=== PATIENT | male | born 1945 | race Caucasian/White ===

== ENCOUNTER → 2025-01-08 08:20 | Outpatient (BNV) | payer MEDICARE, MEDICAID, SELFPAY | PROVIDERS: Emergency Provider Emergency Medicine; Visit Provider Internal Medicine Cardiovascular Disease | DX: I95.9 Hypotension, unspecified (principal); R00.0 Tachycardia, unspecified | CPT/HCPCS: 93010; 93306; 99232 ==

== ENCOUNTER 2025-01-08 08:31 | Inpatient (IN) | payer MEDICARE, MEDICAID, SELFPAY ==
[2025-01-08] VITALS (35 sets, daily range): BP systolic 78–108; BP diastolic 49–79; PULSE 101–129; RESP 15–26; TEMP 36.6–37.7; O2SAT 92–100; BMI 27.5
--- NOTE | ~2025-01-08 | CT_ITS ---
EXAMINATION: CT ANGIOGRAM CHEST CLINICAL INFORMATION: Shortness of breath. COMPARISON: None available. TECHNIQUE: Multiple axial images were obtained through the chest after the administration of 65 mL of Omnipaque 350 intravenous contrast. Extensive vascular post-processing including two-dimensional and three-dimensional reformatted images were created and reviewed on an independent workstation. SmartPrep technique. This CT examination was performed using dose optimization techniques as appropriate, variously including the following: *Automated exposure control *Adjustment of mA and/or kV according to patient size (this includes techniques or standardized protocols for targeted exams where dose is matched to indication/reason for exam; i.e. extremities or head) *Use of iterative reconstruction technique. DLP: 273 mGy centimeter. FINDINGS: There is intraluminal filling defects extending from the left and right main pulmonary artery branches to the subsegmental pulmonary branches to both lungs. The diameter of the main pulmonary artery is smaller when compared with the ascending thoracic aorta. There is no thinning or paradoxical position of the intraventricular septum. No aneurysm or dissection, thoracic aorta. Calcified plaques in the thoracic aortic wall its main branches and the aortic valve. Calcified plaques in the coronary arteries. There is pulmonary patchy groundglass with the chin bud pattern involving both lungs and more confluent groundglass nodules in the left upper lung lobe and lung bases. Secretions within the distal trachea. No gross bronchiectasis or honeycombing. No gross centrilobular emphysematous changes. No gross mediastinal or perihilar lymphadenopathy. No pneumothorax. No pleural effusion. No pericardial effusion. Mild soft tissue fullness in the adrenal glands. Multifocal hypodensities in the upper pole of the kidneys. Calcified plaques in the splenic artery. Calcified pleural plaques in the anterior right hemithorax. No gross acute rib fracture. Multilevel spondylosis with likely old compression deformities throughout the axial skeleton. S-shaped curvature of the thoracic spine. No acute fracture or gross listhesis. CT/CT angio chest PE protocol IMPRESSION: Bilateral extensive pulmonary artery emboli. No right heart strain. Bilateral multifocal pneumonia. Probable aspiration. Unilateral Calcified pleural plaque, right hemithorax. Consider prior trauma versus prior hemorrhage among other etiologies. . Fleischner guidelines were followed. Electronically signed by: Herber Barcenas MD 01/08/2025 01:49 PM EDT
--- NOTE | ~2025-01-08 | XR_ITS ---
EXAMINATION: XR CHEST 1 VIEW HISTORY: SOB COMPARISON: There are no prior studies available for comparison. FINDINGS: A single AP portable view of the chest performed at 9:27 AM is submitted. There is an opacity in the lateral aspect of the right hemithorax which may represent a calcified pleural plaque. The left lung is clear. There is no pleural effusion, pneumothorax, or pulmonary vascular congestion. The heart is normal in size. There is degenerative disc disease of the spine. XR/XR chest 1V IMPRESSION: Opacity in the right hemithorax which may represent a calcified pleural plaque seen en face. CT angiography of the chest is planned. Electronically signed by: Baljit Lucas MD 01/08/2025 09:41 AM EDT
--- NOTE | 2025-01-08 08:50 | ED.GENADULT ---
HPI - General Adult General Chief complaint: General Medical Stated complaint: SOB,89% RA,+FULL SENTENCES PER EMS Source: patient and RN notes reviewed Mode of arrival: EMS Limitations: no limitations History of Present Illness ED Provider: Jackson Koch PA-C HPI narrative: 79-year-old male with medical history of HTN patient by EMS for shortness of breath. Patient states he was seeing at [facility] yesterday for same symptoms and was discharged given an albuterol inhaler, but he was not sure how to use it, patient is blind at baseline could not read directions. Patient states he has been short of breath over the past 5 days, has had to sleep in recliner chair due to shortness of breath and discomfort while lying flat. Patient states about 5 days ago he was cleaning his home when he noticed difficulty breathing, shortness of breath and difficulty walking due to heaviness in his legs. Patient states he was a former tobacco smoker, quit approximately 30 years ago. Patient denies recent illness, travel. Denies chest pain, nausea, vomiting, diarrhea, abdominal pain, cough, chills Related Data Home Medications ?Medication ?Instructions ?Recorded ?Confirmed amlodipine 5 mg tablet 5 mg PO DAILY 01/08/25 01/08/25 lisinopril 40 mg tablet 40 mg PO DAILY 01/08/25 01/08/25 Allergies Allergy/AdvReac Type Severity Reaction Status Date / Time No Known Allergies Allergy Verified 01/08/25 08:51 Review of Systems Review of Systems: CONST: Negative for fever, body aches and chills. HENT: Negative for neck pain/stiffness, headache, congestion, sore throat, swelling. EYES: Negative for discharge/pain or vision changes. RESP: Negative for cough/hemoptysis. POS SOB, difficulty breathing CV: Negative chest pain, palpitations. ABD: Negative pain, nausea, vomiting. : Negative increase frequency, dysuria, blood in urine or stool. MUSC: Negative for muscle aches, edema. SKIN: Negative rash, lesions/sores. NEURO: Negative headache, dizziness, weakness. Yes all other systems are reviewed and are negative PMF Past Medical History Attestation statement: The following information was validated with the patient. Source: old records reviewed and nursing notes reviewed Medical History (Updated 01/09/25 @ 09:30 by Farzana Lehman MD) Chronic kidney disease HTN (hypertension) Blindness Social History Social History (Updated 01/08/25 @ 18:03 by Mary Clinton NP) Household Members: Family Comment: Occasional Patient Tobacco Use Status: Former Tobacco user Smoked in Last 30 Days: No Use of substances other than those prescribed or required for medical reasons: No Have you been hit, kicked, punched, or otherwise hurt by someone within the past year? If so, by whom?: No Do you feel safe in your current relationship?: No Current Relationship Is there a partner from a previous relationship who is making you feel unsafe now?: No Are you made to feel afraid or neglected: No [employer] Healthcare Practices: n/a Are you DNR?: No Advance Directives: No Advance Directives Information Provided: Yes Do you have a plan to hurt others: No Plan Recently lost weight without trying: No How much weight loss: Not applicable Eating poorly because of decreased appetite: No Nutrition screen score: 0 Nutrition Risks: No Nutritional Risk Poor oral hygiene: No Physical Exam ED Vital Signs: Vital Signs - 24 hr 01/08/25 16:41 Pulse Rate 107 H Respiratory Rate 24 H Blood Pressure 95/67 Pulse Oximetry 100 Oxygen Delivery Method High Flow Nasal Cannula BMI result Body Mass Index 27.5 GENERAL APPEARANCE: ?AxOx4, patient with pursed lip breathing, in mild discomfort due to shortness of breath. HEENT: ?NC, AT. MMM. EOMI, clear conjunctiva, oropharynx clear. NECK: ?Supple without lymphadenopathy.? No stiffness or restricted ROM. Significant JVD HEART:? Tachycardic rate and regular rhythm, normal S1/S2, no m/r/g LUNGS:? Diminished breath sounds throughout all lung bustillo, crackles auscultated at bilateral lung bases ABDOMEN: ?Soft, nontender, nondistended with good bowel sounds heard. BACK: No CVAT, no obvious deformity. EXTREMITIES: ?Without cyanosis, clubbing. Bilateral 2+ pitting edema of lower extremities with L>R, no hydrostatic bullae present NEUROLOGICAL: ?Grossly nonfocal. Alert and oriented, moving all 4 extremities Skin: ?Warm and dry without any rash. Course Course Course Narrative: Lucita RosalinoDO 01/08/25 1017 at this time possible infection suspected though consider VTE, mass, cardiogenic shock - will start on LR 160ml given concern for volume overload and ceftriaxone IV Medications Administered Generic Name Dose Route Start Last Admin Trade Name Shala PRN Reason Stop Dose Admin Albuterol Sulfate 2.5 mg 01/08/25 20:00 01/09/25 15:20 Albuterol Sulfate (0.083%) 2.5 Mg/3 Ml Vial.Neb INHALE Not Given RQ4H WHILE AWAKE DASHAWN Heparin Sodium (Porcine) 5,500 unit 01/08/25 13:43 01/09/25 04:33 Heparin Sodium,Porcine 5,000 Unit/Ml Vial 80 unit/kg (5500 unit) 5,500 unit IVPUSH Administration PROTOCOL BOLUS PRN 80 unit/kg - Heparin Protocol Protocol Heparin Sodium/Sodium Chloride 25,000 unit in 250 mls @ 0 mls/hr 01/08/25 13:45 01/09/25 16:21 Heparin Sodium,Porcine/1/2ns IVCONT 14 units/kg/hr .Q0M DASHAWN 9.55 mls/hr Protocol Administration Per Protocol Lactated Ringer's 1,000 mls @ 80 mls/hr 01/08/25 18:00 01/09/25 06:17 Lr IVCONT 80 mls/hr .[id number] DASHAWN Administration Vancomycin HCl 500 mg/ Sodium 110 mls @ 110 mls/hr 01/09/25 08:00 01/09/25 10:25 Chloride IV Infused Q12H DASHAWN Infusion Sodium Chloride 3 ml 01/09/25 00:00 01/09/25 08:29 0.9 % Sodium Chloride Flush 3 Ml Syringe IVFLUSH Not Given QSHIFT DASHAWN Discontinued Medications Generic Name Dose Route Start Last Admin Trade Name Shala PRN Reason Stop Dose Admin Ceftriaxone Sodium 1 gm 01/08/25 10:14 01/08/25 11:22 Ceftriaxone Sodium 1 Gm Vial IVPUSH 01/08/25 10:15 1 gm ONCE ONE Administration Levalbuterol HCl 3.75 mg/ 0 mg 01/08/25 08:47 01/08/25 08:53 Ipratropium [place] 0.5 mg INHALE 01/08/25 08:48 1 dose ONCE ONE Administration Fentanyl 25 mcg 01/09/25 12:28 01/09/25 12:27 Fentanyl Citrate/Pf 100 Mcg/2 Ml Vial IVPUSH 01/09/25 12:29 25 mcg ONCE ONE Administration Protocol Heparin Sodium (Porcine) 5,500 unit 01/08/25 13:43 01/08/25 14:48 Heparin Sodium,Porcine 5,000 Unit/Ml Vial 80 unit/kg (5500 unit) 01/08/25 13:44 5,500 unit IVPUSH Administration ONCE ONE Heparin Sodium (Porcine) 5,000 unit 01/09/25 12:52 01/09/25 12:52 Heparin Sodium,Porcine 10,000 Unit/10 Ml Vial IVPUSH 01/09/25 12:53 5,000 unit STAT STA Administration Albumin Human 100 mls @ 133.333 mls/hr 01/08/25 10:00 01/08/25 12:09 Kedbumin 25 % IV 01/08/25 11:44 Not Given Q1H DASHAWN Norepinephrine Bitartrate 8 mg in 250 mls @ 0 mls/hr 01/08/25 10:15 01/08/25 15:03 Levophed IVCONT Infused .Q0M DASHAWN Titration Protocol Per Protocol Lactated Ringer's 1,000 mls @ 160 mls/hr 01/08/25 10:14 01/08/25 11:08 Lr IV 01/08/25 16:28 Not Given .Q6H15M ONE Lactated Ringer's 1,000 mls @ 500 mls/hr 01/08/25 11:00 01/08/25 11:10 Lr IV 01/08/25 11:59 Not Given .Q2H DASHAWN Lactated Ringer's 1,000 mls @ 500 mls/hr 01/08/25 11:04 01/08/25 13:56 Lr IV 01/08/25 13:03 Infused .Q2H ONE Infusion Lactated Ringer's 1,000 mls @ 500 mls/hr 01/08/25 12:10 01/08/25 15:06 Lr IV 01/08/25 14:09 Infused .Q2H ONE Infusion Piperacillin Sod/Tazobactam 50 mls @ 100 mls/hr 01/08/25 18:15 01/09/25 15:56 Sod 3.375 gm/ Sodium Chloride IV Not Given Q6H DASHAWN Vancomycin HCl 1,500 mg/ 500 mls @ 333.333 mls/hr 01/08/25 18:30 01/08/25 20:54 Sodium Chloride IV 01/08/25 19:59 Infused ONCE ONE Infusion Iohexol 100 ml 01/08/25 13:26 01/08/25 13:27 Iohexol 350 Mg/Ml 100 Ml Infus..Btl IV 01/08/25 13:27 65 ml ONCE ONE Administration Midazolam HCl 0.5 mg 01/09/25 12:27 01/09/25 12:27 Midazolam Hcl 2 Mg/2 Ml Vial IVPUSH 01/09/25 12:28 0.5 mg ONCE ONE Administration Medical Decision Making Medical Decision Making MDM Narrative: 79-year-old male with medical history of HTN patient by EMS for shortness of breath. Patient states he was seeing at [facility] yesterday for same symptoms and was discharged given an albuterol inhaler, but he was not sure how to use it, patient is blind at baseline could not read directions. Patient states he has been short of breath over the past 5 days, has had to sleep in recliner chair due to shortness of breath and discomfort while lying flat. Patient states about 5 days ago he was cleaning his home when he noticed difficulty breathing, shortness of breath and difficulty walking due to heaviness in his legs. Patient states he was a former tobacco smoker, quit approximately 30 years ago. Patient denies recent illness, travel. Vital signs revealed BP of 96/73, pulse rate of 129, respiratory rate of 23, afebrile with oral temperature of 98.9?, O2 saturation 95% on 3 L NC. Bedside echo performed by my attending Dr. Jerry reveals ?right ventricular dysfunction with dilated ventricles, reduced contractility. Plan: Labs, EKG, CXR, CTA chest Course 9:42- patient received Xopenex/Atrovent breathing treatment by Respiratory therapy. Patient states breathing has somewhat improved after treatment. EKG reveals sinus tachycardia with right axis deviation, without ST-elevation/depression or signs of ischemia 10:04- SEE SEPSIS BOLUS EXCLUSION Patient's physical exam shows fluid overload, patient cannot receive fluid bolus for care at this time. Patient with evidence of fluid overload due to 2+ pitting edema of lower extremities, JVD, crackles heard on lung auscultation, patient is cool to the touch. At this time patient exhibiting signs clinical picture of cardiogenic shock. we will medicate with Levophed if pressures continue to drop. 10:24- considered 160 mL IV fluid, per recommendation of mat linker Dr. Mcgovern who is following this case, hold fluids until echo is completed due to fluid overload. Will do BIPAP to help push fluid off of lungs. Awaiting CTA chest results. Dr. Mcgovern recommending 500 mL fluids, with additional 500 mL if needed for soft pressures. Labs without leukocytosis, H and H stable. Creatinine elevated at 1.5, Lactic acid elevated at 3.3, BNP elevated at 774, initial troponin elevated at 203.7. Patient with rectal temperature of 100?. 11:20- infection suspected at this time, patient being medicated with 1 g ceftriaxone for empirical coverage. 12:33- patient currently receiving Levophed for soft pressure, patient requiring 0.03 to maintain stable BP. Patient received 500 mL fluid without issue, currently receiving additional bag for total of a 1000 mL. Lactic acid trending down now 3.1, 2nd troponin elevated at 327.9 most likely due to demand, repeat EKG without ST elevation/depression. Vital signs reveal blood pressure of 82/60, pulse rate of 108 beats per minute, respiratory rate of 21, oral temp of 99?, O2 saturation 95% on BiPAP. Awaiting CTA chest. 17:00- Levophed discontinued, BiPAP discontinue patient now on high-flow oxygen, is hemodynamically stable at this time. Vital signs still a tachycardia of 107 beats per minute, tachypnea of 24 breaths per minute. CTA chest revealed multiple bilateral pulmonary emboli, with bilateral pneumonia. Heparin drip started. Lactic acid is still elevated at 3.8. Patient being admitted to medicine. Differential Diagnosis Differential Diagnoses: The differential diagnosis associated with the presentation includes ACS PE COPD exacerbation CHF exacerbation Pneumonia Admission/Observation Consideration of admission/observation: Escalation of care including admission/observation considered Consult Healthcare Provider Management of the patient was discussed with: Hospitalist (Dr. Lacey) Dr. Lacey who will admit to medicine Lab Data MDM Lab Attestation statement: I reviewed the patient's lab results. 01/09/25 04:24 01/09/25 04:24 Labs: Lab Results 01/08/25 01/08/25 01/08/25 Range/Units 09:25 09:34 11:03 WBC 7.0 (4.8-10.8) X10*3/uL RBC 4.30 L (4.60-5.80) X10*6/uL Hgb 12.6 L (14.0-18.0) g/dl Hct 38.7 L (42.0-52.0) % MCV 90.0 (80.0-98.0) fL MCH 29.3 (27.0-33.0) pg MCHC 32.6 (31.0-36.0) g/dl RDW 13.8 (11.0-16.0) % Plt Count 250 (160-400) X10*3/uL MPV 9.5 (9.4-12.4) fL Immature Gran % (Auto) 1.9 H (0.0-0.4) % Neut % (Auto) 90.4 H (45-73) % Lymph % (Auto) 6.7 L (20-40) % [place] % (Auto) 0.9 L (2-11) % Eos % (Auto) 0.0 (0-4) % Baso % (Auto) 0.1 (0-2) % Lymph # (Auto) 0.5 L (1.2-4.9) X10*3/uL [place] # (Auto) 0.1 (0.1-1.2) X10*3/uL Eos # (Auto) 0.0 (0.0-0.4) X10*3/uL Baso # (Auto) 0.0 (0.0-0.2) X10*3/uL Abs Immat Gran (auto) 0.13 H (0.00-0.03) X10*3/uL Absolute Neuts (auto) 6.3 (2.0-8.3) x10*3/uL Absolute Nucleated RBC 0.000 (0.0-0.012) X10*3/uL Nucleated RBC % (auto) 0.0 (0.0-0.2) /100WBC Smear Tech's Comments VERIFIED PT (10.9-12.4) SEC INR (0.9-1.1) aPTT Heparin Protocol (53-77.9) SEC Hold Blue Top SEE NOTE VBG pH 7.33 (7.32-7.43) VBG pCO2 38 mmHg VBG pO2 51 mmHg VBG HCO3 20 L (22-26) mmol/L VBG O2 Saturation 76.0 % VBG Base Excess -4.8 mmol/L Sodium 137 (135-145) mmol/L Potassium 5.3 H (3.3-5.1) mmol/L Chloride 102 (96-108) mmol/L Carbon Dioxide 19 L (22-29) mmol/L Anion Gap 22 H (12-20) BUN 37 H (9-16) mg/dL Creatinine 1.36 (0.5-1.4) mg/dL Estim Creat Clear Calc 38.0 Estimated GFR 51 Random Glucose 160 H (60-115) mg/dL Lactic Acid 3.3 H* (0.5-2.0) mmol/L Lactic Acid F/U @ 2Hr (0.5-2.0) mmol/L Calcium 9.1 (8.4-10.2) mg/dL Magnesium 1.8 (1.6-2.6) mg/dL Total Bilirubin 0.6 (0.0-1.0) mg/dL AST 27 (5-37) U/L ALT 29 (0-40) U/L Alkaline Phosphatase 162 H (39-117) U/L Ammonia 26 (13-55) umol/L Troponin I High Sens 203.7 H* (<3.5-35.0) ng/L B-Natriuretic Peptide 774 H (<100) pg/mL Total Protein 7.1 (6.5-8.0) g/dL Albumin 3.8 (3.5-5.0) g/dL 01/08/25 01/08/25 01/08/25 Range/Units 12:12 12:13 12:14 WBC (4.8-10.8) X10*3/uL RBC (4.60-5.80) X10*6/uL Hgb (14.0-18.0) g/dl Hct (42.0-52.0) % MCV (80.0-98.0) fL MCH (27.0-33.0) pg MCHC (31.0-36.0) g/dl RDW (11.0-16.0) % Plt Count (160-400) X10*3/uL MPV (9.4-12.4) fL Immature Gran % (Auto) (0.0-0.4) % Neut % (Auto) (45-73) % Lymph % (Auto) (20-40) % [place] % (Auto) (2-11) % Eos % (Auto) (0-4) % Baso % (Auto) (0-2) % Lymph # (Auto) (1.2-4.9) X10*3/uL [place] # (Auto) (0.1-1.2) X10*3/uL Eos # (Auto) (0.0-0.4) X10*3/uL Baso # (Auto) (0.0-0.2) X10*3/uL Abs Immat Gran (auto) (0.00-0.03) X10*3/uL Absolute Neuts (auto) (2.0-8.3) x10*3/uL Absolute Nucleated RBC (0.0-0.012) X10*3/uL Nucleated RBC % (auto) (0.0-0.2) /100WBC Smear Tech's Comments PT (10.9-12.4) SEC INR (0.9-1.1) aPTT Heparin Protocol (53-77.9) SEC Hold Blue Top VBG pH (7.32-7.43) VBG pCO2 mmHg VBG pO2 mmHg VBG HCO3 (22-26) mmol/L VBG O2 Saturation % VBG Base Excess mmol/L Sodium 136 (135-145) mmol/L Potassium 5.2 H (3.3-5.1) mmol/L Chloride 104 (96-108) mmol/L Carbon Dioxide 18 L (22-29) mmol/L Anion Gap 19 (12-20) BUN 39 H (9-16) mg/dL Creatinine 1.50 H (0.5-1.4) mg/dL Estim Creat Clear Calc 34.4 Estimated GFR 45 Random Glucose 156 H (60-115) mg/dL Lactic Acid (0.5-2.0) mmol/L Lactic Acid F/U @ 2Hr 3.1 H* (0.5-2.0) mmol/L Calcium 8.6 (8.4-10.2) mg/dL Magnesium (1.6-2.6) mg/dL Total Bilirubin 0.4 (0.0-1.0) mg/dL AST 30 (5-37) U/L ALT 27 (0-40) U/L Alkaline Phosphatase 142 H (39-117) U/L Ammonia (13-55) umol/L Troponin I High Sens 327.9 H* D (<3.5-35.0) ng/L B-Natriuretic Peptide (<100) pg/mL Total Protein 6.3 L (6.5-8.0) g/dL Albumin 3.5 (3.5-5.0) g/dL 01/08/25 01/08/25 Range/Units 14:15 16:51 WBC (4.8-10.8) X10*3/uL RBC (4.60-5.80) X10*6/uL Hgb (14.0-18.0) g/dl Hct (42.0-52.0) % MCV (80.0-98.0) fL MCH (27.0-33.0) pg MCHC (31.0-36.0) g/dl RDW (11.0-16.0) % Plt Count (160-400) X10*3/uL MPV (9.4-12.4) fL Immature Gran % (Auto) (0.0-0.4) % Neut % (Auto) (45-73) % Lymph % (Auto) (20-40) % [place] % (Auto) (2-11) % Eos % (Auto) (0-4) % Baso % (Auto) (0-2) % Lymph # (Auto) (1.2-4.9) X10*3/uL [place] # (Auto) (0.1-1.2) X10*3/uL Eos # (Auto) (0.0-0.4) X10*3/uL Baso # (Auto) (0.0-0.2) X10*3/uL Abs Immat Gran (auto) (0.00-0.03) X10*3/uL Absolute Neuts (auto) (2.0-8.3) x10*3/uL Absolute Nucleated RBC (0.0-0.012) X10*3/uL Nucleated RBC % (auto) (0.0-0.2) /100WBC Smear Tech's Comments PT 13.6 H (10.9-12.4) SEC INR 1.2 H (0.9-1.1) aPTT Heparin Protocol 24.7 L (53-77.9) SEC Hold Blue Top VBG pH (7.32-7.43) VBG pCO2 mmHg VBG pO2 mmHg VBG HCO3 (22-26) mmol/L VBG O2 Saturation % VBG Base Excess mmol/L Sodium (135-145) mmol/L Potassium (3.3-5.1) mmol/L Chloride (96-108) mmol/L Carbon Dioxide (22-29) mmol/L Anion Gap (12-20) BUN (9-16) mg/dL Creatinine (0.5-1.4) mg/dL Estim Creat Clear Calc Estimated GFR Random Glucose (60-115) mg/dL Lactic Acid 3.8 H* (0.5-2.0) mmol/L Lactic Acid F/U @ 2Hr 2.3 H* (0.5-2.0) mmol/L Calcium (8.4-10.2) mg/dL Magnesium (1.6-2.6) mg/dL Total Bilirubin (0.0-1.0) mg/dL AST (5-37) U/L ALT (0-40) U/L Alkaline Phosphatase (39-117) U/L Ammonia (13-55) umol/L Troponin I High Sens (<3.5-35.0) ng/L B-Natriuretic Peptide (<100) pg/mL Total Protein (6.5-8.0) g/dL Albumin (3.5-5.0) g/dL Independent Interpretation I performed an independent interpretation of an: EKG Interpretation: I independently interpreted the EKG which reveals sinus tachycardia without ST elevation/depression or T-wave abnormality Vent. Rate : 131 BPM Atrial Rate : 131 BPM P-R Int : 134 ms QRS Dur : 74 ms QT Int : 308 ms P-R-T Axes : 53 260 25 degrees QTcB Int : 454 ms Sinus tachycardia Right superior axis deviation Right ventricular hypertrophy Septal infarct , age undetermined Abnormal ECG No previous ECGs available 2nd EKG- Vent. Rate : 107 BPM Atrial Rate : 107 BPM P-R Int : 138 ms QRS Dur : 74 ms QT Int : 346 ms P-R-T Axes : 59 -79 15 degrees QTcB Int : 461 ms Sinus tachycardia Left axis deviation Pulmonary disease pattern Septal infarct (cited on or before 08-Jan-2025) Inferior infarct , age undetermined Abnormal ECG When compared with ECG of 08-Jan-2025 09:01, No significant change was found I independently interpreted the CXR which reveals opacities of the right lung, no cardiomegaly, pleural effusion, I agree with the radiologist's interpretation Radiology Impression Discussion of test interpretation with radiology: I have reviewed the radiologist's reading. Radiologist Impression: CXR FINDINGS: A single AP portable view of the chest performed at 9:27 AM is submitted. There is an opacity in the lateral aspect of the right hemithorax which may represent a calcified pleural plaque. The left lung is clear. There is no pleural effusion, pneumothorax, or pulmonary vascular congestion. The heart is normal in size. There is degenerative disc disease of the spine. XR/XR chest 1V IMPRESSION: Opacity in the right hemithorax which may represent a calcified pleural plaque seen en face. CT angiography of the chest is planned. Electronically signed by: Baljit Lucas MD 01/08/2025 09:41 AM EDT RP Dictated By: Baljit Lucas MD Signed By: <Electronically signed by Baljit Lucas MD in [place]> 01/08/25 0941 CTA chest FINDINGS: There is intraluminal filling defects extending from the left and right main pulmonary artery branches to the subsegmental pulmonary branches to both lungs. The diameter of the main pulmonary artery is smaller when compared with the ascending thoracic aorta. There is no thinning or paradoxical position of the intraventricular septum. No aneurysm or dissection, thoracic aorta. Calcified plaques in the thoracic aortic wall its main branches and the aortic valve. Calcified plaques in the coronary arteries. There is pulmonary patchy groundglass with the chin bud pattern involving both lungs and more confluent groundglass nodules in the left upper lung lobe and lung bases. Secretions within the distal trachea. No gross bronchiectasis or honeycombing. No gross centrilobular emphysematous changes. No gross mediastinal or perihilar lymphadenopathy. No pneumothorax. No pleural effusion. No pericardial effusion. Mild soft tissue fullness in the adrenal glands. Multifocal hypodensities in the upper pole of the kidneys. Calcified plaques in the splenic artery. Calcified pleural plaques in the anterior right hemithorax. No gross acute rib fracture. Multilevel spondylosis with likely old compression deformities throughout the axial skeleton. S-shaped curvature of the thoracic spine. No acute fracture or gross listhesis. CT/CT angio chest PE protocol IMPRESSION: Bilateral extensive pulmonary artery emboli. No right heart strain. Bilateral multifocal pneumonia. Probable aspiration. Unilateral Calcified pleural plaque, right hemithorax. Consider prior trauma versus prior hemorrhage among other etiologies. . Fleischner guidelines were followed. Electronically signed by: Herber Barcenas MD 01/08/2025 01:49 PM EDT RP Dictated By: Herber Naidu MD Signed By: <Electronically signed by Herber Mcrae MD in [place]> 01/08/25 1349 Independent Historian Clinical information obtained from an independent historian. History obtained from or confirmed by: Other (Grandson at bedside corroborating history) External Record Review External record reviewed: Inpatient record, Office record and Outpatient record Chronic Conditions Patient?s care impacted by: Hypertension Critical Care Time Critical Care Time Total Critical Care Time: 93 Attestation: I personally provided a total of 93 minutes of critical care time, exclusive of separately billable procedures. The patient presented with acute decompensated respiratory failure and hemodynamic instability due to bilateral pulmonary emboli with severe tachycardia and tachypnea requiring BiPAP for oxygenation and ventilation support in initiation of vasopressor therapy to maintain adequate mean arterial pressure. My critical care time including direct evaluation and monitoring of airway breathing and circulation, interpretation of labs, EKG and imaging of CT angiography, initiation titration of BiPAP for acute hypoxic respiratory failure, initiation and titration of vasopressor support for cardiogenic shock, fluid resuscitation and hemodynamic reassessment, initiation of anticoagulation for pulmonary embolisms, consultation with hospitalist for continuous care, continuous bedside reassessment for deterioration. Discharge Plan Discharge Clinical Impression: Pulmonary embolism Patient Disposition: Admitted As Inpatient Interventions: Admission Worksheet (ED) Last Done: 01/09/25 07:58 Discharge Date/Time: 01/09/25 08:57 Sepsis Bolus Exclusion Sepsis Bolus Exclusion CHF/Renal Failure This patient met severe sepsis criteria due to the following condition(s):: Hypotension In my clinical judgement the administration of 30 ml/kg of crystalloid would be detrimental to this patient due to the patient's following conditions:: Concern for fluid overload Replace the 30 mls/kg with (Zero amount not acceptable and all fluids for severe sepsis must be given at GREATER than 125 mls/hr) Crystalloids amount given in mls: (rate must be at least 150cc/hr): 500 Colloids amount given in mls:: 0
[2025-01-08] MEDS: levalbuterol HCL 3.75 MG, Ipratropium Bromide 0.5 MG INHALE (08:53)
--- NOTE | 2025-01-08 08:55 | PC.NURSE ---
Pt seen by provider on arrival SOB, receiving duoneb by ems- O2 sat still 86 on RA- O2 administered at 2lpm N/C without effect- 3 LPM administered with good effect. Pt also receiving another resp tx and sat is rising to 95%. Pt placed on full monitor- HR remains ST 120's. Family at bedside
--- NOTE | 2025-01-08 08:59 | ECG_ITS ---
Test Reason : TACHYCARDIA Blood Pressure : */* mmHG Vent. Rate : 131 BPM Atrial Rate : 131 BPM P-R Int : 134 ms QRS Dur : 74 ms QT Int : 308 ms P-R-T Axes : 53 260 25 degrees QTcB Int : 454 ms Sinus tachycardia Right superior axis deviation Right ventricular hypertrophy Septal infarct , age undetermined Abnormal ECG No previous ECGs available Referred By: Zee Paz Electronically Signed By: Andre Mcgovern
--- NOTE | 2025-01-08 09:02 | ECG_ITS ---
Test Reason : abnormal labs Blood Pressure : */* mmHG Vent. Rate : 107 BPM Atrial Rate : 107 BPM P-R Int : 138 ms QRS Dur : 74 ms QT Int : 346 ms P-R-T Axes : 59 -79 15 degrees QTcB Int : 461 ms Sinus tachycardia Left axis deviation Pulmonary disease pattern Septal infarct (cited on or before 08-Jan-2025) Inferior infarct , age undetermined Abnormal ECG When compared with ECG of 08-Jan-2025 09:01, No significant change was found Referred By: Zee Paz Electronically Signed By: Andre Mcgovern
[2025-01-08 09:35] LABS: Hematocrit 38.7 % (42.0-52.0); Hemoglobin 12.6 g/dl (14.0-18.0); Imm Gran Abs Auto 0.13 X10*3/uL (0.00-0.03); Imm Gran Pct Auto 1.9 % (0.0-0.4); Lymphocytes Absolute Auto 0.5 X10*3/uL (1.2-4.9); MANUAL DIFF FLAG SCAN; Mean Corpuscular HGB Conc 32.6 g/dl (31.0-36.0); Mean Corpuscular Hemoglobin 29.3 pg (27.0-33.0); Mean Corpuscular Volume 90.0 fL (80.0-98.0); NRBC Abs Auto 0.000 X10*3/uL (0.0-0.012); NRBC Pct Auto 0.0 /100WBC (0.0-0.2); Platelet Count 250 X10*3/uL (160-400); Red Blood Count 4.30 X10*6/uL (4.60-5.80); SCAN SMEAR FLAG 1; White Blood Count 7.0 X10*3/uL (4.8-10.8)
[2025-01-08 09:36] LABS: Venous Blood Gas Refer to POC result
[2025-01-08 09:37] LABS: VBG HCO3 20 mmol/L (22-26); VBG O2 % Saturation 76.0 %
[2025-01-08 09:41] LABS: Ammonia 26 umol/L (13-55)
[2025-01-08 09:54] LABS: Alanine Aminotransferase 29 U/L (0-40); Albumin Level 3.8 g/dL (3.5-5.0); Alkaline Phosphatase 162 U/L (39-117); Aspartate Amino Transferase 27 U/L (5-37); Blood Urea Nitrogen 37 mg/dL (9-16); Calcium 9.1 mg/dL (8.4-10.2); Carbon Dioxide 19 mmol/L (22-29); Chloride 102 mmol/L (96-108); Creatinine Clr Calc Pharmacy 38.0; Estimated Glomerular Filt Rate 51; Magnesium 1.8 mg/dL (1.6-2.6); Potassium 5.3 mmol/L (3.3-5.1); Sodium 137 mmol/L (135-145); Total Protein 7.1 g/dL (6.5-8.0)
[2025-01-08 09:55] LABS: B Type Natriuretic Peptide 774 pg/mL (<100)
[2025-01-08 10:02] LABS: Troponin-I High Sensitivity 203.7 ng/L (<3.5-35.0)
--- NOTE | 2025-01-08 10:18 | CA_ITS ---
Transthoracic Echocardiogram Patient (Last, First, Middle): Wes Vogel, Gender: Male Date of : 1945 Age: 79 Procedure Date: 01/08/2025 Procedure Type: Transthoracic Echocardiogram Location: ER Height: 157.48 cm Weight: 68.04 kg BSA: 1.69 m2 Heart Rate: bpm BP: 89 / 64 mmHg Lead Machinist: TO Referring MD: Lucita Jerry DO Symptoms: dyspnea, volume overload, elevated BNP Study Quality: Fair/Contrast Conclusions: - Normal left ventricular size and systolic function. There is mildly increased left ventricular wall thickness. The visually estimated ejection fraction is between 60-65%. 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 - Mildly increased right ventricular cavity size. There is mild to moderately decreased right ventricular systolic function. - There is mild to moderate aortic valve stenosis. - Significantly elevated right atrial pressure. - Mild pulmonary hypertension is present. Findings Procedure Information Contrast agent, definity, is being given per protocol without apparent complications. Left Ventricle Normal left ventricular size and systolic function. There is mildly increased left ventricular wall thickness. The visually estimated ejection fraction is between 60-65%. Abnormal diastolic function is noted. Spectral Doppler is indicative of an impaired relaxation filling pattern. E/E prime ratio is between 8 and 15 consistent with indeterminate filling pressures. 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 Right Ventricle Mildly increased right ventricular cavity size. There is mild to moderately decreased right ventricular systolic function. Atria The left atrium is normal in size. The right atrium is likely dilated. Aortic Valve There is a normal trileaflet aortic valve. There is moderate calcification of the aortic valve. There is mild to moderate aortic valve stenosis. The peak aortic velocity is 2.68 m/s. The mean gradient is 16 mmHg. The aortic valve area is 1.13 cm2. There is no aortic valve regurgitation. Mitral Valve The mitral valve appears normal. There is mild mitral annular calcification. There is no mitral valve regurgitation. There is no mitral valve stenosis. Pulmonic Valve The pulmonic valve is normal. There is no pulmonic valve regurgitation. Tricuspid Valve Normal tricuspid valve structure. There is no tricuspid valve regurgitation. The right ventricular systolic pressure is 44 mmHg. Significantly elevated right atrial pressure. Mild pulmonary hypertension is present. Great Vessels All visible segments of the aorta are normal in size. The visualized portions of the pulmonary artery and branches are normal. Venous The inferior vena cava is dilated and collapses less than 50% with inspiration. Pericardium/Pleural There is no evidence of pericardial effusion. Prior Study Comparison No prior study available for comparison. Measurements 2D Linear Measurements IVSd: 1.64 0.6-0.9/0.6-1.0 cm LVIDd: 3.76 3.9-5.3/4.2-5.9 cm LVIDd Index: 2.22 2.4-3.2/2.2-3.1 cm/m2 LVIDs: 3.00 2.0-3.6 cm LVPWd: 1.18 0.7-1.1 cm LV Mass: 241.00 67-162/88-224 g LV Mass Index: 142.60 43-95/49-115 g/m2 LVOT Diam: 2.30 3.0+(-)1.3 cm 2D Systolic Function EF 4C: 47.20 >55% EF 2C: 38.00 >55% Mitral Valve MV Pk E: 0.39 MV PK A: 0.56 MV Decel Time: 106.00 E/A: 0.70 E'Lateral: 3.92 E'Medial: 3.26 E/E' Med: 12.10 E/E' Lat: 10.10 PHT: 31.00 MVA PHT: 7.10 Decel Wilbarger: 3.72 Aortic Valve AoV Pk Faizan: 2.68 AoV Mn Faizan: 1.92 AoV VTI: 0.33 AoV Pk Grad: 29.00 Aov Mn Grad: 16.00 TARAH Cont.VTI: 1.13 LVOT LVOT Pk Faizan: 0.73 LVOT Mn Faizan: 0.46 LVOT VTI: 0.09 LVOT Pk Grad: 2.00 LVOT Mn Grad: 1.00 LVOT Diam: 2.30 LVOT Area: 4.15 Diastolic Function MV Pk E: 0.39 MV Pk A: 0.56 E/A: 0.70 E'Medial: 3.26 E/E' Med: 12.10 E' Laterial: 3.92 E/E' Lat: 10.10 Right Ventricle TAPSE (mm): 12.90 TVS' Faizan: 10.10 Tricuspid Valve TR Pk Faizan: 2.70 TR Pk Grad: 29.00 RA Press: 15.00 RVSP: 44.00 Great Vessels Aorta Sinus of Valsalva: 3.40 2.0-3.5 cm Ao Asc: 3.30 2.1-3.4 cm Updated in Other Vendor System with Status of Final Andre Mcgovern MD electronically signed on 01/08/2025 12:45:37 PM with status of Final
--- NOTE | 2025-01-08 11:01 | P.CONCA_ITS ---
History of Present Illness History of Present Illness Date of Service: 01/08/25 Requesting physician: Lucita Jerry Chief complaint: SOB,89% RA,+FULL SENTENCES PER EMS Narrative: 79-year-old gentleman with no significant past medical history presenting with shortness of breath ongoing over the last 3-4 weeks. He had progressive shortness of breath, productive sputum and subjective fevers. He was accompanied by family who said that he has been significantly short of breath in his daily activities which is a completely new finding. He is denying any chest discomfort. No recent air travel or long car travel. He was tachycardic in the emergency department and had borderline blood pressures. Initial echocardiography by ER raise concern for biventricular dysfunction but the imaging was difficult. Given work of breathing he was started on BiPAP. We did a stat echocardiogram which showed hyperdynamic left ventricle, significant left ventricular hypertrophy and [id number] right ventricular dilatation with low normal right ventricular function. He was bolused with IV fluids. He was initially on low-dose Levophed which was titrated down. He is due to get a permanent CTA angiogram to rule out PE. [facility] Social History Social History Smoked in Last 30 Days: No Use of substances other than those prescribed or required for medical reasons: No Do you have a plan to hurt others: No Plan Meds Allergies Allergy/AdvReac Type Severity Reaction Status Date / Time No Known Allergies Allergy Verified 01/08/25 08:51 Active Medications: Current Medications Albumin Human (Kedbumin 25 %) 100 mls @ 133.333 mls/hr IV Q1H DASHAWN Stop: 01/08/25 11:44 Norepinephrine Bitartrate (Levophed) 8 mg in 250 mls @ 0 mls/hr IVCONT .Q0M DASHAWN; Protocol Last Titration: 01/08/25 10:56 Dose: 0.04 mcg/kg/min, 5.12 mls/hr Lactated Ringer's (Lr) 1,000 mls @ 160 mls/hr IV .Q6H15M ONE Stop: 01/08/25 16:28 Lactated Ringer's (Lr) 1,000 mls @ 500 mls/hr IV .Q2H DASHAWN Stop: 01/08/25 11:59 Physical Exam 2 Vital Signs: Vital Signs: Last Vital Signs Temp 100 F 01/08/25 10:50 Pulse 120 H 01/08/25 10:56 Resp 21 H 01/08/25 10:34 BP 105/71 01/08/25 10:56 Pulse Ox 95 01/08/25 09:04 O2 Del Method Nasal Cannula 01/08/25 09:04 O2 Flow Rate 3 01/08/25 09:04 Oxygen Flow Rate 3 01/08/25 08:47 BMI result Body Mass Index 27.5 GENERAL APPEARANCE: Short of breath. NECK: no carotid bruit, mild jugular venous distention. SKIN: no suspicious lesions, warm and dry. HEART: no murmurs, regular rate and rhythm. Tachycardic. LUNGS: clear to auscultation anteriorly. ABDOMEN: soft, nontender. EXTREMITIES: 1 to 2+ edema. PERIPHERAL PULSES: equal. NEUROLOGIC: Legally blind., AAO X 3 Objective Labs and Meds 01/08/25 09:25 01/08/25 09:25 Lab results: Laboratory Results - last 24 hr 01/08/25 01/08/25 09:25 09:34 WBC 7.0 RBC 4.30 L Hgb 12.6 L Hct 38.7 L MCV 90.0 MCH 29.3 MCHC 32.6 RDW 13.8 Plt Count 250 MPV 9.5 Immature Gran % (Auto) 1.9 H Neut % (Auto) 90.4 H Lymph % (Auto) 6.7 L [place] % (Auto) 0.9 L Eos % (Auto) 0.0 Baso % (Auto) 0.1 Lymph # (Auto) 0.5 L [place] # (Auto) 0.1 Eos # (Auto) 0.0 Baso # (Auto) 0.0 Abs Immat Gran (auto) 0.13 H Absolute Neuts (auto) 6.3 Absolute Nucleated RBC 0.000 Nucleated RBC % (auto) 0.0 Smear Tech's Comments VERIFIED Hold Blue Top SEE NOTE VBG pH 7.33 VBG pCO2 38 VBG pO2 51 VBG HCO3 20 L VBG O2 Saturation 76.0 VBG Base Excess -4.8 Lactic Acid 3.3 H* Ammonia 26 Troponin I High Sens 203.7 H* B-Natriuretic Peptide 774 H Imaging Radiologist's impression: Impressions Chest X-Ray 01/08/25 08:27 IMPRESSION: Opacity in the right hemithorax which may represent a calcified pleural plaque seen en face. CT angiography of the chest is planned. 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 He had significant worsening and was brought in by family. He was noticed to be hypoxic on room air. He was also noticed to be tachycardic in sinus tach. Stat echocardiogram was performed at bedside which showed hyperdynamic left ventricle with significant left ventricular hypertrophy. Right ventricular was fniz-sb-pyyytejion dilated with low-normal systolic function. IV fluid resuscitation. Chest x-ray has shown pleural plaques but no obvious explanation for hypoxia and shortness of breath is noted. Given tachycardia, shortness of breath and jtxq-zq-hqlbaiap RV dilatation I think we have to rule out pulmonary embolism in this gentleman. He should have a stat CT PE protocol. Blood cultures. If no PE noticed then he should be empirically treated for sepsis. We will follow along with you. I will review the full echocardiogram if there is any other significant findings and these will be related to the primary team. Thank you for allowing me to participate in the care of your patient. Please feel free to contact me if you have any questions. Procedures Date of Service Date of Service: 01/08/25
[2025-01-08] MEDS: Lactated Ringers 1,000 ML 500 ML IV ×2 (11:10→12:14)
--- NOTE | 2025-01-08 11:10 | PC.NURSE ---
cardiology in and aware of pt's VS. stated to hold albumin and norepi and also hold 160 ml fluids earlier, after initial echo was done at which time cardiology states to begin norepi and 500 ml bolus which is effective to raise BP at this time.
[2025-01-08 11:30] LABS: Reflex Lactate? Lactic Acid Added
[2025-01-08 12:13] LABS: Anion Gap 22 (12-20)
--- NOTE | 2025-01-08 12:15 | MHC.EDTECH ---
Patient got his lab work drawn at 9:25 first time,but no result back for CMP posted , I call the lab they said the result will be a few minute in the computer, but it wasn't, and another blood work drawn at 1103 till 12pm there is not any result in the computer, DANA Pinto called the lab again they said the specimen in the machine a few minute the result will be in, QUOC magallon, and she order another blood work, and i did it again waiting for the result.
[2025-01-08 12:37] LABS: Alanine Aminotransferase 27 U/L (0-40); Albumin Level 3.5 g/dL (3.5-5.0); Alkaline Phosphatase 142 U/L (39-117); Anion Gap 19 (12-20); Aspartate Amino Transferase 30 U/L (5-37); Blood Urea Nitrogen 39 mg/dL (9-16); Calcium 8.6 mg/dL (8.4-10.2); Carbon Dioxide 18 mmol/L (22-29); Chloride 104 mmol/L (96-108); Creatinine Clr Calc Pharmacy 34.4; Estimated Glomerular Filt Rate 45; Potassium 5.2 mmol/L (3.3-5.1); Sodium 136 mmol/L (135-145); Total Protein 6.3 g/dL (6.5-8.0)
[2025-01-08 12:39] LABS: ~Lactic Acid-LAB USE ONLY 3.1 mmol/L (0.5-2.0)
--- NOTE | 2025-01-08 12:47 | PC.NURSE ---
Cardiology stated to wean Norepi if able. Pt BP remains with MAP above 65 but drops to 66 when I titrate to 0.01 mcg rate- Norepi titrated up to 0.03 several times. MAP > 70 at .03 mcg. Will check with provider as systolic remains low. Both 500 ml LR boluses infused.
[2025-01-08 12:48] LABS: Troponin-I High Sensitivity 327.9 ng/L (<3.5-35.0)
[2025-01-08] MEDS: iohexoL 350 MG/ML 100 ML INFUS..BTL IV (13:27)
--- NOTE | 2025-01-08 13:46 | PC.NURSE ---
pt transferred to CT w/ this RN on monitor. pt transitioned to 4L via oxymask per provider order. pt seemingly sob during transport. pt transitioned back onto bipap via RT upon returning to ED1. BP continues to improve - pt remains to have levophed infusing @ 0.03mcg/kg/min per provider order. sinus tachycardic on the monitor. CT results pending at this time. family bedside for support. plan of care ongoing. call leone placed within reach.
--- OUTSIDE RECORDS SUMMARY | 2025-01-08 14:09 | XMS_ITS | Clinical Summary ---
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 Pipe Organ Installer Name Role Phone Wisam Thomas MD Primary Care Provider [phone] Allergies No known active allergies Medications amLODIPine (NORVASC) 5 mg tablet TAKE 1 TABLET BY MOUTH DAILY 90 tablet 1 11/21/2024 Active lisinopril (PRINIVIL,ZESTRI L) 40 mg tablet TAKE 1 TABLET BY MOUTH DAILY 90 tablet 1 11/21/2024 Active Active Problems Problem Noted Date Diagnosed Date Bilateral hearing loss 11/23/2023 Simple renal cyst 06/12/2019 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 CKD (chronic kidney disease) stage 3, GFR 30-59 ml/min ([facility] V24, [facility] V28) 08/04/2016 Overview (05/03/2024): Dr Araya Esophageal reflux 11/21/2014 Essential hypertension 05/20/2011 Profound vision impairment both eyes 05/20/2011 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22 Encounters Date Type Department Care Team Description 01/07/2025 5:02 PM EDT - 01/07/2025 11:59 PM EDT [facility] [address] [place] [address] Symptoms of upper respiratory infection (URI) Discharge Disposition: Home or Self Care 01/07/2025 4:45 PM EDT Office Visit Walk-In Clinic - [address] [phone] Jose Hanna NP Symptoms of upper respiratory infection (URI) (Primary Dx); Acute cough 01/07/2025 [facility] [address] [phone] Wisam Thomas MD Cough 12/20/2024 [facility] [address] [phone] Wisam Thomas MD [facility] care link/requesting refax orders 12/17/24 12/14/2024 [facility] [address] [phone] Wisam Thomas MD Faxed Order (AFC order) from Last 3 Months Immunizations Name Administration Dates Next Due Pfizer SARS-CoV-2 COVID-19, mRNA, LNP-S, preservative free 10/20/2020,09/29/2020 Surgical History Surgery Date Site/Laterality Comments APPENDECTOMY PROCEDURE: IA APPENDEC INDICATED PURPOSE OTH MAJOR PX NOT SPX HERNIA REPAIR PROCEDURE: REPAIR INGUINAL HERNIA COLONOSCOPY 02/28/12 PROCEDURE: HISTORICAL COLONOSCOPY; COMMENT: adenoma and tics; repeat in 5 yrs Medical History Medical History Date Comments Blindness DX:Blindness Essential hypertension DX:Essent ial hypertension Kidney disease DX:Kidney diseas e Family History Medical History Relation Name Comments Coronary artery disease Brother 1 Other: Other Brother 1 kidney failures Diabetes Brother 2 Heart failure Brother 2 Strabismus Brother 2 Mental illness Daughter Other: substance ause Daughter Coronary artery disease Father Hypertension Father Coronary artery disease Mother Relation Name Status Comments Brother 1 Brother 2 Alive Daughter Alive Father Mother Social History Tobacco Use Types Packs/Day Years Used Date Smoking Tobacco: Former Cigarettes Q uit: 10/10/2011 Smokeless Tobacco: Never Tobacco Cessation:Counseling Given: Not Answered Alcohol Use Standard Drinks/Week Comments Yes 0 (1 standard drink = 0.6 oz pur e alcohol) Sex and Gender Information Value Date Recorded Sex Assigned at Not on file Legal Sex Male 11:51 PM EST Gender Identity Not on file Sexual Orientation Not on file Obstetrics History Last Filed Vital Signs Vital Sign Reading Time Taken Comments Blood Pressure 118/62 01/07/2025 4:46 PM EDT Pulse 94 01/07/2025 4:46 PM EDT Temperature 36.7 C (98 F) 01/07/2025 4:46 PM EDT Respiratory Rate - - Oxygen Saturation 88% 01/07/2025 4:46 PM EDT Inhaled Oxygen Concentration - - Weight 70.5 kg (155 lb 8 oz) 07/23/2024 3:48 PM EST Height 157.5 cm (5' 2 ) 07/23/2024 3:48 PM EST Body Mass Index 28.44 07/23/2024 3:48 PM EST Plan of Treatment Upcoming Encounters Date Type Department Care Team (Late st Contact Info) Description 01/25/2025 2:00 PM EDT Office Visit Internal Medicine - [address] [phone] Wisam Thomas MD [address] [place] [phone] 02/05/2025 12:45 PM EDT Office Visit Nephrology - [address] [phone] Steven Araya MD [address] [phone] Health Maintenance Due Date Last Done Comments DTaP,Tdap,and Td Vaccines (1 - Tdap) 1964 Zoster Vaccines (1 of 2) 1964 Pneumococcal Vaccine: 50+ Years (1 of 1 - PCV) 1996 COVID-19 Vaccine (3 - Pfizer risk series) 11/17/2020 10/20/2020, 09/29/2020 RSV Immunization Adult Patients (1 - 1-dose 75+ series) 2021 Colorectal Cancer Screening: Colonoscopy 05/08/2022 Hepatitis C Screening 05/08/2022 Lung Cancer Screening (Low Dose CT) 05/08/2022 Social Influencers of Health Screening 05/08/2022 Medicare Annual Wellness Visit 01/04/2024 01/03/2023 Depression Screening 05/30/2024 Falls Risk Assessment 01/18/2025 01/19/2024 Influenza Vaccine (#1) 2025 Hypertension/CHF/CAD Annual BMP Blood Test 07/23/2025 07/23/2024, 01/19/2024, 01/19/2024, Additional history exists Cholesterol Screening (Lipid Panel) 07/23/2029 07/23/2024, 11/23/2023, 11/23/2023 HIB Vaccines Aged Out No longer eligi ble based on patient's age to complete this topic HPV Vaccines Aged Out No longer eligi ble based on patient's age to complete this topic Hepatitis A Vaccines Aged Out No long er eligible based on patient's age to complete this topic Hepatitis B Vaccines Aged Out No long er eligible based on patient's age to complete this topic IPV Vaccines Aged Out No longer eligi ble based on patient's age to complete this topic MMR Vaccines Aged Out No longer eligi ble based on patient's age to complete this topic Meningococcal ACWY Vaccine Aged Out N o longer eligible based on patient's age to complete this topic Meningococcal B Vaccine Aged Out No l onger eligible based on patient's age to complete this topic RSV Immunization Patients Under 20 months Aged Out No longer eligible based on patient's age to complete this topic Varicella Vaccines Aged Out No longer eligible based on patient's age to complete this topic Procedures Procedure Name Priority Date/Time Associated Diagnosis Comments XR CHEST 2 VIEWS STAT 01/07/2025 5:10 PM EDT Symptoms of upper respiratory infection (URI) POC RAPID [id number], MOLECULAR Routine 01/07/2025 5:02 PM EDT Symptoms of upper respiratory infection (URI) BASIC METABOLIC PANEL Routine 07/23/2024 4:12 PM EST Essential hypertension LIPID PANEL WITH REFLEX TO DIRECT LDL Routine 07/23/2024 4:12 PM EST Essential hypertension FALLS RISK ASSESSMENT Routine 01/19/2024 from Last 3 Months or Most Recently Relevant to Health Maintenance Results * XR Chest 2 Views (01/07/2025 5:10 PM EDT) Anatomical Region Laterality Modality Body Radiographic Teena ging 01/08/2025 9:42 AM EDT Narrative 01/08/2025 9:45 AM EDT Chest, 2 views. History cough. Comparison with previous study from 01/19/2024. Lungs are hyperinflated. There is suggestion of large calcified pleural plaque in the right lung. There is interval development of rounded focal opacity in the left upper lobe. There is focal consolidation in the right middle lobe. Cardiomediastinal silhouette is stable in appearance. There are degenerative changes in the thoracic spine. CONCLUSIONS: New rounded nodular opacity in the left upper lobe. Focal consolidation in the right middle lobe. Pleural plaques. Chest CT is recommended for further assessment. A copy of this report will be provided to the [employer] [facility]. -------- FINAL REPORT -------- Dictated By: Cheli Dutton Dictated Date: 01/08/2025 09:42 ET Assigned Physician: Cheli Dutton Reviewed and Electronically Signed By: Cheli Dutton Signed Date: 01/08/2025 09:45 ET Workstation ID: [id number] Transcribed By: Self Edit Transcribed Date: 01/08/2025 09:42 ET Procedure Note Cheli Dutton MD - 01/08/2025 Chest, 2 views. History cough. Comparison with previous study from 01/19/2024. Lungs are hyperinflated. There is suggestion of large calcified pleuralplaque in the right lung. There is interval development of rounded focalopacity in the left upper lobe. There is focal consolidation in the rightmiddle lobe. Cardiomediastinal silhouette is stable in appearance. Thereare degenerative changes in the thoracic spine. CONCLUSIONS: New rounded nodular opacity in the left upper lobe. Focalconsolidation in the right middle lobe. Pleural plaques. Chest CT is recommended for further assessment. A copy of this report will be provided to the [employer] [facility]. -------- FINAL REPORT -------- Dictated By: Cheli Dutton Dictated Date: 01/08/2025 09:42 ET Assigned Physician: Cheli Dutton Reviewed and Electronically Signed By: Cheli Dutton Signed Date: 01/08/2025 09:45 ET Workstation ID: [id number] Transcribed By: Self Edit Transcribed Date: 01/08/2025 09:42 ET Jose Hanna PHYSICIAN PRACTICE CONSULTANT IMG XR PROCEDURES Final Resul t * Poc Rapid CPSR-[id number], MOLECULAR (01/07/2025 5:02 PM EDT) Pathologist [facility] COVID-19/SARS- COV-2 Rapid POC Negative Negative Swab Nasopharyngeal structure / Unknown 01/07/2025 5:02 PM EDT Jose Hanna NP POINT OF CARE TEST ENTER/EDIT ORDERABLES Final Result * Lipid panel with reflex to direct LDL (07/23/2024 4:12 PM EST) [facility] Cholesterol 148 0 - 200 mg/dL LAB CHEMISTRY METHOD 07/23/2024 7:01 PM [facility] Triglycerides 63 0 - 150 mg/dL LAB CHEMISTRY METHOD 07/23/2024 7:01 PM [facility] HDL 60 >=40 mg/dL LAB CHEMISTRY METHOD 07/23/2024 7:01 PM [facility] LDL Calculated 75 0 - 100 mg/dL LAB CHEMISTRY METHOD 07/23/2024 7:01 PM [facility] VLDL Cholesterol Jayy 12.6 mg/dL LAB CHEMISTRY METHOD 07/23/2024 7:01 PM [facility] Non HDL Chol. (LDL+VLDL) 88 <145 mg/dL LAB CHEMISTRY METHOD 07/23/2024 7:01 PM [facility] Chol/HDL Ratio 2.5 0.0 - 4.4 LAB CHEMISTRY METHOD 07/23/2024 7:01 PM [facility] Blood Venous blood specimen / Unknown Venipuncture / Unknown 07/23/2024 4:12 PM EST 07/23/2024 4:12 PM EST us Wisam Thomas MD LAB BLOOD ORDERABLES Final Res ult [facility] [address] [place] [address], [place] [phone] * (ABNORMAL) Basic metabolic panel (07/23/2024 4:12 PM EST) Sodium 139 133 - 145 mmol/L LAB CHEMISTRY METHOD 07/23/2024 7:01 PM [facility] Potassium 4.8 3.5 - 5.5 mmol/L LAB CHEMISTRY METHOD 07/23/2024 7:01 PM [facility] Chloride 108 96 - 110 mmol/L LAB CHEMISTRY METHOD 07/23/2024 7:01 PM [facility] CO2 23 21 - 32 mmol/L LAB CHEMISTRY METHOD 07/23/2024 7:01 PM [facility] Anion Gap 8 3 - 11 LAB CHEMISTRY METHOD 07/23/2024 7:01 PM [facility] Glucose 68(L) 70 - 100 mg/dL LAB CHEMISTRY METHOD 07/23/2024 7:01 PM [facility] BUN 31(H) 5 - 25 mg/dL LAB CHEMISTRY METHOD 07/23/2024 7:01 PM [facility] Creatinine 1.48(H) 0.70 - 1.30 mg/dL LAB CHEMISTRY METHOD 07/23/2024 7:01 PM [facility] eGFR 48(L) >=60 mL/min/1. 73m2 LAB CHEMISTRY METHOD 07/23/2024 7:01 PM [facility] Comment:Calculation based on the Chronic Kidney Disease Epidemiology Collaboration (CKD-EPI) equation refit without adjustment for race. BUN/Creatinine Ratio 20.9 LAB CHEMISTRY METHOD 07/23/2024 7:01 PM EST [facility] Calcium 8.9 8.5 - 10.5 mg/dL LAB CHEMISTRY METHOD 07/23/2024 7:01 PM EST [facility] Blood Venous blood specimen / Unknown Venipuncture / Unknown 07/23/2024 4:12 PM EST 07/23/2024 4:12 PM EST Wisam Thomas MD LAB BLOOD ORDERABLES Final Res ult [facility]) [facility] [address] [place] [address], * Falls Risk Assessment (01/19/2024) Falls Risk Assessment abstracted Historical Provider HEALTH MAINTENANCE Final Result from Last 3 Months or Most Recently Relevant to Health Maintenance Insurance MEDICARE [place]ICAID - [place] Care Teams Pipe Organ Installer Relationship Specialty Start Date End Date Wisam Thomas MD [address] [place] [phone] PCP - General Internal Medicine 05/03/11
[2025-01-08 14:16] LABS: Reflex Lactate? 2 Y
[2025-01-08 14:30] LABS: INTERNATIONAL NORM RATIO 1.2 (0.9-1.1); Prothrombin Time 13.6 SEC (10.9-12.4)
[2025-01-08 14:33] LABS: PTT Heparin Drip 24.7 SEC (53-77.9)
--- NOTE | 2025-01-08 14:33 | MHC.EDTECH ---
Lactic was drawn at 14:15.
[2025-01-08] MEDS: Heparin Sodium,Porcine/1/2NS 25,000 UNIT/250 ML IV.SOLN 9.55 UNIT IVCONT (14:56)
--- NOTE | 2025-01-08 15:49 | PC.NURSE ---
this RN resumed care of pt at 1500. pt alert and oriented. answering questions/following commands appropriately. vss and up to date aside from remaining sinus tachycardic on the monitor. denies any chest pain/palpitations. pt transitioned from bipap to HFNC at this time via RT - SPO2 @ 100%. pt tolerating transition well w/o difficulty. pt currently remains off of norepinephrine drip d/t MAP remaining >65. heparin gtt currently infusing @ 14 units/kg/min. family remains bedside for assistance. plan of care ongoing. call leone placed within reach.
--- NOTE | 2025-01-08 16:16 | P.CONGS_ITS ---
History of Present Illness Consult details Consult date: 01/08/25 Narrative: Very pleasant 79-year-old gentleman presents for evaluation of pulmonary embolism. He reports that he had some mild shortness of breath about a week and a half ago. It became worse over the last 4-5 days where it became significantly short of breath and difficulty breathing. He had 2 sleeping a recliner as it was difficult for him to sleep in a recumbent position. He presented to an outside hospital yesterday and was discharged on an albuterol inhaler and noted no significant improvement. Came in today and was noted to be satting 89% on room air significant difficulty breathing and on upon workup and CAT scan was noted to have a pulmonary embolism along with pneumonia. 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 He has a remote history of smoking and quit nearly 30 years ago. He is a nondiabetic. Upon arrival he was noted to be tachycardic at 01:28 blood pressure 100/74 satting 92% on nasal cannula 3 L. laboratory studies demonstrated white count of 7 high sensitivity troponin of 203 BNP of 774 with repeat high sensitivity troponin of 327.9. Of note he has no prior history of DVT or PE. No prior history of filter or stents. Review of Systems 2 Review of Systems: Yes all other systems are reviewed and are negative Constitutional: Constitutional: Reports no additional constitutional complaints Eyes: Eyes: Reports as per HPI ENT: Reports Normal hearing present Cardiovascular: Cardiovascular: Denies chest pain, Denies chest pain at rest, Denies chest pain with activity, Denies pedal edema and Reports dyspnea Respiratory: Respiratory: Reports dyspnea Gastrointestinal: Gastrointestinal: Denies abdominal pain Musculoskeletal: Musculoskeletal: Denies abnormal gait, Denies muscle cramps and Denies radiating pain into limb Integumentary/Breasts: Skin/Breast: Denies skin ulcer and Denies wounds Neurologic: Reports Normal hearing present and Denies abnormal gait Psychiatric: Psychiatric: Reports no additional psychiatric complaints [facility] Social History Social History Smoked in Last 30 Days: No Use of substances other than those prescribed or required for medical reasons: No Advance Directives: No Advance Directives Information Provided: Yes Do you have a plan to hurt others: No Plan Meds Allergies Allergy/AdvReac Type Severity Reaction Status Date / Time No Known Allergies Allergy Verified 01/08/25 08:51 Active Medications: Current Medications Heparin Sodium (Porcine) (Heparin Sodium,Porcine 5,000 Unit/Ml Vial) 2,700 unit 40 unit/kg (2700 unit) IVPUSH PROTOCOL BOLUS PRN; Protocol PRN Reason: 40 unit/kg - Heparin Protocol Heparin Sodium (Porcine) (Heparin Sodium,Porcine 5,000 Unit/Ml Vial) 5,500 unit 80 unit/kg (5500 unit) IVPUSH PROTOCOL BOLUS PRN; Protocol PRN Reason: 80 unit/kg - Heparin Protocol Lactated Ringer's (Lr) 1,000 mls @ 160 mls/hr IV .[id number] ONE Stop: 01/08/25 16:28 Last Admin: 01/08/25 11:08 Dose: Not Given Heparin Sodium/Sodium Chloride (Heparin Sodium,Porcine/1/2ns) 25,000 unit in 250 mls @ 0 mls/hr IVCONT .Q0M DASHAWN; Protocol Last Admin: 01/08/25 14:56 Dose: 14 units/kg/hr, 9.55 mls/hr Physical Exam 2 Vital Signs: Vital Signs: Last Vital Signs Temp 98.6 F 01/08/25 15:54 Pulse 112 H 01/08/25 15:54 Resp 22 H 01/08/25 15:54 BP 105/74 01/08/25 15:54 Pulse Ox 98 01/08/25 15:54 O2 Del Method High Flow Nasal C annula 01/08/25 15:54 O2 Flow Rate 28 01/08/25 14:08 FiO2 28 01/08/25 14:08 Oxygen Flow Rate 3 01/08/25 08:47 BMI result Body Mass Index 27.5 Const: General: cooperative, healthy appearing and comfortable O rientation/consciousness: oriented to person, oriented to place and oriented to time HEENT: Head: Yes normal to inspection Neck: Neck: Yes normal visual inspection Carotids: no bruits Chest: Chest palpation & inspection: normal inspection of the chest Resp: Effort & Inspection: abnormal respiratory pattern and decreased respiratory effort Auscultation: no crackles, no rales, no rhonchi, no wheezes and diminished lung sounds Cardio: Rate: regular rate Rhythm: regular rhythm Heart sounds: S1 normal heart sound present and S2 normal heart sound present Bruits: no carotid bruits Peripheral pulses: Peripheral pulses 2+ throughout GI: Inspection: Yes normal to inspection Skin: Wounds: no wounds Hair: normal Neuro: General: oriented to person, oriented to place and oriented to time Cranial nerves: Yes CN's II-XII intact bilaterally and Yes Normal hearing present Cognition (Neuro): normal cognition Motor exam (neuro): 5/5 motor strength present throughout Extrem: Other: venous exam: No significant superficial varicosities or spider telangiectasias, minimal edema General: No clubbing, No cyanosis and No edema Psych: Appearance: grossly normal Mental Status: mental status grossly normal Speech and movement: Normal speech and movement present Results Labs 01/08/25 09:25 01/08/25 12:14 Labs: Abnormal lab results 01/08/25 01/08/25 01/08/25 Range/Units 09: 09:34 11:03 RBC 4.30 L (4.60-5.80) X10*6/uL Hgb 12.6 L (14.0-18.0) g/dl Hct 38.7 L (42.0-52.0) % Immature Gran % (Auto) 1.9 H (0.0-0.4) % Neut % (Auto) 90.4 H (45-73) % Lymph % (Auto) 6.7 L (20-40) % [place] % (Auto) 0.9 L (2-11) % Lymph # (Auto) 0.5 L (1.2-4.9) X10*3/uL Abs Immat Gran (auto) 0.13 H (0.00-0.03) X10*3/uL PT (10.9-12.4) SEC INR (0.9-1.1) aPTT Heparin Protocol (53-77.9) SEC VBG HCO3 20 L (22-26) mmol/L Potassium 5.3 H (3.3-5.1) mmol/L Carbon Dioxide 19 L (22-29) mmol/L Anion Gap 22 H (12-20) BUN 37 H (9-16) mg/dL Creatinine (0.5-1.4) mg/dL Random Glucose 160 H (60-115) mg/dL Lactic Acid 3.3 H* (0.5-2.0) mmol/L Lactic Acid F/U @ 2Hr (0.5-2.0) mmol/L Alkaline Phosphatase 162 H (39-117) U/L Troponin I High Sens 203.7 H* (<3.5-35.0) ng/L B-Natriuretic Peptide 774 H (<100) pg/mL Total Protein (6.5-8.0) g/dL 01/08/25 01/08/25 01/08/25 Range/Units 12:12 12:13 12:14 RBC (4.60-5.80) X10*6/uL Hgb (14.0-18.0) g/dl Hct (42.0-52.0) % Immature Gran % (Auto) (0.0-0.4) % Neut % (Auto) (45-73) % Lymph % (Auto) (20-40) % [place] % (Auto) (2-11) % Lymph # (Auto) (1.2-4.9) X10*3/uL Abs Immat Gran (auto) (0.00-0.03) X10*3/uL PT (10.9-12.4) SEC INR (0.9-1.1) aPTT Heparin Protocol (53-77.9) SEC VBG HCO3 (22-26) mmol/L Potassium 5.2 H (3.3-5.1) mmol/L Carbon Dioxide 18 L (22-29) mmol/L Anion Gap (12-20) BUN 39 H (9-16) mg/dL Creatinine 1.50 H (0.5-1.4) mg/dL Random Glucose 156 H (60-115) mg/dL Lactic Acid (0.5-2.0) mmol/L Lactic Acid F/U @ 2Hr 3.1 H* (0.5-2.0) mmol/L Alkaline Phosphatase 142 H (39-117) U/L Troponin I High Sens 327.9 H* D (<3.5-35.0) ng/L B-Natriuretic Peptide (<100) pg/mL Total Protein 6.3 L (6.5-8.0) g/dL 01/08/25 Range/Units 14:15 RBC (4.60-5.80) X10*6/uL Hgb (14.0-18.0) g/dl Hct (42.0-52.0) % Immature Gran % (Auto) (0.0-0.4) % Neut % (Auto) (45-73) % Lymph % (Auto) (20-40) % [place] % (Auto) (2-11) % Lymph # (Auto) (1.2-4.9) X10*3/uL Abs Immat Gran (auto) (0.00-0.03) X10*3/uL PT 13.6 H (10.9-12.4) SEC INR 1.2 H (0.9-1.1) aPTT Heparin Protocol 24.7 L (53-77.9) SEC VBG HCO3 (22-26) mmol/L Potassium (3.3-5.1) mmol/L Carbon Dioxide (22-29) mmol/L Anion Gap (12-20) BUN (9-16) mg/dL Creatinine (0.5-1.4) mg/dL Random Glucose (60-115) mg/dL Lactic Acid 3.8 H* (0.5-2.0) mmol/L Lactic Acid F/U @ 2Hr (0.5-2.0) mmol/L Alkaline Phosphatase (39-117) U/L Troponin I High Sens (<3.5-35.0) ng/L B-Natriuretic Peptide (<100) pg/mL Total Protein (6.5-8.0) g/dL Short CBC 01/08/25 Range/Units 09:25 WBC 7.0 (4.8-10.8) X10*3/uL Hgb 12.6 L (14.0-18.0) g/dl Hct 38.7 L (42.0-52.0) % Plt Count 250 (160-400) X10*3/uL BMP 01/08/25 01/08/25 11:03 12:14 Sodium 137 136 Potassium 5.3 H 5.2 H Chloride 102 104 Carbon Dioxide 19 L 18 L BUN 37 H 39 H Creatinine 1.36 1.50 H Calcium 9.1 8.6 Liver Function 01/08/25 01/08/25 Range/Units 11:03 12:14 Total Bilirubin 0.6 0.4 (0.0-1.0) mg/dL AST 27 30 (5-37) U/L ALT 29 27 (0-40) U/L Alkaline Phosphatase 162 H 142 H (39-117) U/L Albumin 3.8 3.5 (3.5-5.0) g/dL All other labs normal. Imaging Additional studies: CT scan was reviewed and demonstrates main right and left PA filling defects and evidence of bilateral multifocal pneumonia. Images and report were reviewed. Assessment and Plan (1) Pulmonary embolism: Qualifiers: Pulmonary embolism type: other Chronicity: acute Acute cor pulmonale presence: with acute cor pulmonale Qualified Code(s): I26.09 - Other pulmonary embolism with acute cor pulmonale Status: Acute Plan In short patient has acute pulmonary embolism. Due to the central location he would benefit from a pulmonary embolectomy. This will help with his overall respiratory status and improve his chances for his pneumonia to improve. Risks benefits complications were discussed in detail with the patient he understood and consented. We will schedule him for tomorrow. He is currently on a heparin drip. Thank you for allowing us to assist in his care Procedures Date of Service Date of Service: 01/08/25
[2025-01-08 16:18] LABS: Reflex Lactate? Lactic Acid Added
--- NOTE | 2025-01-08 17:13 | PC.NURSE ---
update given to patient's grandson (ethel robertson) per patient request. grandson's phone number - [phone]
[2025-01-08 17:22] LABS: ~Lactic Acid-LAB USE ONLY 2.3 mmol/L (0.5-2.0)
--- NOTE | 2025-01-08 17:59 | PM.IMHP ---
History of Present Illness Date of Service: 01/08/25 Chief Complaint: Shortness of breaths 79-year-old man who presents to the ER with complaints of worsening shortness breath over the last several weeks. Patient reported that while walking he has been getting tired quickly and he has been having to sit in the chair while he sleeps due to the shortness of breath. Reported over the last several months he has been in his usual state of health, no recent illness that left him bed-bound, no trauma or injury, no recent plane ride did have a car ride to [place] about 2 months ago. He went to [facility] yesterday with the same symptoms and was discharged with an albuterol inhaler. Patient is blind on was unable to understand the directions. His shortness breath has worsened over the last week or so. He denied chest pain, nausea, vomiting, diarrhea, fever, chills, recent illness, any history of blood clots. He does not have any other significant medical problems. In the ER, he was noted to have elevated creatinine of 1.50, lactic acid 3.8, troponin 2 or 3.7. Chest CTA showed bilateral extensive pulmonary artery emboli, no right heart strain, bilateral multifocal pneumonia, probable aspiration right hemithorax but denies any prior. Plan is to admit patient for further management and treatment of acute PE and pneumonia. Review of Systems Review of Systems: Denies any recent fever chills or decrease in appetite respiratory see HPI cardiovascular denied chest pain gastrointestinal denies any dysphagia abdominal pain nausea vomiting or diarrhea genitourinary denies any dysuria frequency or hematuria musculoskeletal denies any joint pain or swelling neuropsych denies any weakness or seizures all other systems reviewed are negative [facility] Social History (Updated 01/08/25 @ 18:03 by Mary Clinton NP) Household Members: Family Comment: Occasional Patient Tobacco Use Status: Former Tobacco user Meds Allergies Allergy/AdvReac Type Severity Reaction Status Date / Time No Known Allergies Allergy Verified 01/08/25 08:51 Active Medications: Current Medications Acetaminophen (Acetaminophen 325 Mg Tablet) 650 mg PO Q6H PRN PRN Reason: Pain, Mild 1-3,fever,headache Calcium Carbonate (Calcium Carbonate 750 Mg Tab.Chew) 750 mg PO Q4H PRN PRN Reason: Heartburn Heparin Sodium (Porcine) (Heparin Sodium,Porcine 5,000 Unit/Ml Vial) 2,700 unit 40 unit/kg (2700 unit) IVPUSH PROTOCOL BOLUS PRN; Protocol PRN Reason: 40 unit/kg - Heparin Protocol Heparin Sodium (Porcine) (Heparin Sodium,Porcine 5,000 Unit/Ml Vial) 5,500 unit 80 unit/kg (5500 unit) IVPUSH PROTOCOL BOLUS PRN; Protocol PRN Reason: 80 unit/kg - Heparin Protocol Heparin Sodium/Sodium Chloride (Heparin Sodium,Porcine/1/2ns) 25,000 unit in 250 mls @ 0 mls/hr IVCONT .Q0M COUNTS INCLUDE 234 BEDS AT THE [facility]; Protocol Last Admin: 01/08/25 14:56 Dose: 14 units/kg/hr, 9.55 mls/hr Lactated Ringer's (Lr) 1,000 mls @ 80 mls/hr IVCONT .[id number] COUNTS INCLUDE 234 BEDS AT THE [facility] Magnesium Hydroxide (Milk Of Magnesia 30 Ml Oral.Susp) 30 ml PO DAILY PRN PRN Reason: Constipation Melatonin (Melatonin 3 Mg Tablet) 6 mg PO BEDTIME PRN PRN Reason: Insomnia Ondansetron HCl (Ondansetron Hcl 4 Mg/2 Ml Vial) 4 mg IVPUSH Q8H PRN PRN Reason: Nausea and Vomiting Oxycodone HCl (Oxycodone Hcl Immed Release 5 Mg Tablet) 5 mg PO Q6H PRN PRN Reason: Pain, Severe (Pain Scale 7-10) Sodium Chloride (0.9 % Sodium Chloride Flush 3 Ml Syringe) [facility] Medications ?Medication ?Instructions ?Recorded ?Confirmed ?Last Taken ?Type amlodipine 5 mg tablet 5 mg PO DAILY 01/08/25 01/08/25 Unknown History lisinopril 40 mg tablet 40 mg PO DAILY 01/08/25 01/08/25 Unknown History Physical Exam Vital Signs and Narrative: Vital Signs: Last Vital Signs Temp 98.6 F 01/08/25 15:54 Pulse 107 H 01/08/25 16:41 Resp 24 H 01/08/25 16:41 BP 95/67 01/08/25 16:41 Pulse Ox 100 01/08/25 16:41 O2 Del Method High Flow Nasal C annula 01/08/25 16:41 O2 Flow Rate 28 01/08/25 14:08 FiO2 28 01/08/25 14:08 Oxygen Flow Rate 3 01/08/25 08:47 BMI result Body Mass Index 27.5 Appearing in no acute distress head is normocephalic atraumatic eyes pupils are PERRLA sclera is anicteric mouth throat mucous membranes are intact and moist neck is supple no lymphadenopathy, no JVD noted lung sounds are clear to auscultation heart regular rate rhythm, clear S1, S2 positive bowel sounds, abdomen is soft, nontender neuro patient is alert x3, no focal deficits Results Labs 01/08/25 09:01/08/25 12:14 Labs: Laboratory Results - last 24 hr 01/08/25 01/08/25 01/08/25 09:25 09:34 11:03 MCV 90.0 MCH 29.3 MCHC 32.6 RDW 13.8 Plt Count 250 MPV 9.5 Immature Gran % (Auto) 1.9 H Neut % (Auto) 90.4 H Lymph % (Auto) 6.7 L [place] % (Auto) 0.9 L Eos % (Auto) 0.0 Baso % (Auto) 0.1 Lymph # (Auto) 0.5 L [place] # (Auto) 0.1 Eos # (Auto) 0.0 Baso # (Auto) 0.0 Abs Immat Gran (auto) 0.13 H Absolute Neuts (auto) 6.3 Absolute Nucleated RBC 0.000 Nucleated RBC % (auto) 0.0 Smear Tech's Comments VERIFIED PT INR aPTT Heparin Protocol Hold Blue Top SEE NOTE VBG pH 7.33 VBG pCO2 38 VBG pO2 51 VBG HCO3 20 L VBG O2 Saturation 76.0 VBG Base Excess -4.8 Anion Gap 22 H Estim Creat Clear Calc 38.0 Estimated GFR 51 Random Glucose 160 H Lactic Acid 3.3 H* Lactic Acid F/U @ 2Hr Calcium 9.1 Magnesium 1.8 Total Bilirubin 0.6 AST 27 ALT 29 Alkaline Phosphatase 162 H Ammonia 26 B-Natriuretic Peptide 774 H Total Protein 7.1 Albumin 3.8 01/08/25 01/08/25 01/08/25 12:12 12:14 14:15 MCV MCH MCHC RDW Plt Count MPV Immature Gran % (Auto) Neut % (Auto) Lymph % (Auto) [place] % (Auto) Eos % (Auto) Baso % (Auto) Lymph # (Auto) [place] # (Auto) Eos # (Auto) Baso # (Auto) Abs Immat Gran (auto) Absolute Neuts (auto) Absolute Nucleated RBC Nucleated RBC % (auto) Smear Tech's Comments PT 13.6 H INR 1.2 H aPTT Heparin Protocol 24.7 L Hold Blue Top VBG pH VBG pCO2 VBG pO2 VBG HCO3 VBG O2 Saturation VBG Base Excess Anion Gap 19 Estim Creat Clear Calc 34.4 Estimated GFR 45 Random Glucose 156 H Lactic Acid 3.8 H* Lactic Acid F/U @ 2Hr 3.1 H* Calcium 8.6 Magnesium Total Bilirubin 0.4 AST 30 ALT 27 Alkaline Phosphatase 142 H Ammonia B-Natriuretic Peptide Total Protein 6.3 L Albumin 3.5 01/08/25 16:51 MCV MCH MCHC RDW Plt Count MPV Immature Gran % (Auto) Neut % (Auto) Lymph % (Auto) [place] % (Auto) Eos % (Auto) Baso % (Auto) Lymph # (Auto) [place] # (Auto) Eos # (Auto) Baso # (Auto) Abs Immat Gran (auto) Absolute Neuts (auto) Absolute Nucleated RBC Nucleated RBC % (auto) Smear Tech's Comments PT INR aPTT Heparin Protocol Hold Blue Top VBG pH VBG pCO2 VBG pO2 VBG HCO3 VBG O2 Saturation VBG Base Excess Anion Gap Estim Creat Clear Calc Estimated GFR Random Glucose Lactic Acid Lactic Acid F/U @ 2Hr 2.3 H* Calcium Magnesium Total Bilirubin AST ALT Alkaline Phosphatase Ammonia B-Natriuretic Peptide Total Protein Albumin Imaging Radiologist's Impressions: Impressions Chest X-Ray 01/08/25 08:27 IMPRESSION: Opacity in the right hemithorax which may represent a calcified pleural plaque seen en face. CT angiography of the chest is planned. Electronically signed by: Baljit Lucas MD 01/08/2025 09:41 AM EDT RP Chest CTA 01/08/25 12:18 IMPRESSION: Bilateral extensive pulmonary artery emboli. No right heart strain. Bilateral multifocal pneumonia. Probable aspiration. Unilateral Calcified pleural plaque, right hemithorax. Consider prior trauma versus prior hemorrhage among other etiologies. . Fleischner guidelines were followed. Electronically signed by: Herber Barcenas MD 01/08/2025 01:49 PM EDT RP Assessment and Plan (1) Tachycardia: Status: Acute (2) Hypotension: Status: Acute Plan 79-year-old blind man admitted for acute pulmonary embolus and bilateral pneumonia Acute pulmonary embolus No history of trauma or illness leading to being bed-bound Chest CTA showing extensive bilateral pulmonary artery emboli Initially treated with BiPAP, transitioned to high-flow oxygen Started on IV heparin, we will need to be transitioned to Eliquis likely Hematology consultation Vascular surgery consultation for possible embolectomy Septic shock secondary to Bilateral multifocal pneumonia, possible aspiration Tachycardia, tachypnea, hypotension, lactic acidosis Received 3 L of IV fluid in the ER Required pressors in the ER due to hypotension, blood pressure stable now Continue high-flow oxygen Albuterol hold off on steroids for now Vancomycin and Zosyn for now If no improvement consider pulmonology consultation YURIDIA Likely secondary to dehydration IV fluids Elevated troponin No complaints of chest pain No ischemic changes noted on EKG Likely secondary to PE and bilateral pneumonia Mild hyperkalemia Monitor, repeat in the a.m. Normocytic anemia No signs of bleeding Stable H&H Quality Stroke Does the patient have a stroke diagnosis?: No VTE Prior VTE?: No VTE Risk Level:: Medical - moderate - high VTE Device Contraindication: Treatment Not Indicated VTE Drug Contraindication: N/A - Med Ordered
--- NOTE | 2025-01-08 18:09 | PHA.MEDREC ---
Addendum entered by Tariq Villegas [facility] 01/08/25 18:12: med rec reviewed Original Note: Pharmacy Consult ? Medication Reconciliation Pharmacy has completed the medication reconciliation. Patient states he hasn't started taking Albuterol HFA or Prednisone 10 mg. Patient confirmed he only takes Amlodipine 5 mg and Lisinopril 40 mg. Patient can'r remember when he last took his medications, he thinks it's been a few days since he took any medications.
[2025-01-08] MEDS: Lactated Ringers 1,000 ML 80 ML IVCONT (18:14)
[2025-01-08 18:54] LABS: Reflex Lactate? 2 Y
[2025-01-08] MEDS: Albuterol Sulfate (0.083%) 2.5 MG/3 ML VIAL.NEB INHALE (19:01)
[2025-01-08 19:46] LABS: ~Lactic Acid-LAB USE ONLY 1.7 mmol/L (0.5-2.0)
[2025-01-08 20:41] LABS: Appearance Urine Clear; Glucose Urine UA Negative (Negative); PH 5.0 (5.0-9.0); Specific Gravity - Urine >= 1.030 (1.005-1.025)
--- NOTE | 2025-01-08 20:56 | PC.NURSE ---
pt remains alert/oriented. vss and up to date aside from remaining tachycardic on the monitor - pt denies any chest pain/palpitations. pt currently remains on HFNC - no apparent respiratory distress noted. no sob/wob noted. respirations even/unlabored. phlebotomy bedside obtaining blood work for heparin gtt. will titrate per [facility] protocol. see MAR for further documentation. pt otherwise has no complaints. pending bed assignment. plan of care ongoing. call leone placed within reach.
[2025-01-08 21:14] LABS: PTT Heparin Drip 62.5 SEC (53-77.9)
--- NOTE | 2025-01-08 21:27 | PC.NURSE ---
repeat PTT heparin results received at this time. no rate change required for heparin gtt. gtt continues to infuse @ 14units/kg/hr at this time.
[2025-01-09] VITALS (31 sets, daily range): BP systolic 87–140; BP diastolic 57–80; PULSE 67–111; RESP 10–24; TEMP 36.3–37.1; O2SAT 92–100
[2025-01-09 00:27] LABS: PTT Heparin Drip 24.8 SEC (53-77.9)
--- NOTE | 2025-01-09 00:52 | PC.NURSE ---
Addendum entered by Wendie Anaya RN 01/09/25 00:55: correct order should be for 3:25am Original Note: Notified Dr. Giron, ptt order placed by pharmacy was not correct for heparin drip titration. Correct order was for 3:23am, per provider go by 3:23am ptt order.
[2025-01-09 04:11] LABS: PTT Heparin Drip 35.9 SEC (53-77.9)
[2025-01-09 05:06] LABS: Hematocrit 31.8 % (42.0-52.0); Hemoglobin 10.2 g/dl (14.0-18.0); Mean Corpuscular HGB Conc 32.1 g/dl (31.0-36.0); Mean Corpuscular Hemoglobin 28.7 pg (27.0-33.0); Mean Corpuscular Volume 89.3 fL (80.0-98.0); NRBC Abs Auto 0.000 X10*3/uL (0.0-0.012); NRBC Pct Auto 0.0 /100WBC (0.0-0.2); Platelet Count 226 X10*3/uL (160-400); Red Blood Count 3.56 X10*6/uL (4.60-5.80); White Blood Count 8.9 X10*3/uL (4.8-10.8)
[2025-01-09 05:07] LABS: INTERNATIONAL NORM RATIO 1.1 (0.9-1.1); Prothrombin Time 12.5 SEC (10.9-12.4)
[2025-01-09 05:23] LABS: Anion Gap 15 (12-20); Blood Urea Nitrogen 43 mg/dL (9-16); Calcium 8.1 mg/dL (8.4-10.2); Carbon Dioxide 20 mmol/L (22-29); Chloride 108 mmol/L (96-108); Creatinine Clr Calc Pharmacy 35.6; Estimated Glomerular Filt Rate 47; Potassium 5.6 mmol/L (3.3-5.1); Sodium 137 mmol/L (135-145)
[2025-01-09] MEDS: 0.9 % Sodium Chloride Flush 3 ML SYRINGE IVFLUSH ×2 (06:02→17:15)
--- NOTE | 2025-01-09 06:03 | PC.NURSE ---
medicated per mar, pt resting and earing TV
[2025-01-09] MEDS: Lactated Ringers 1,000 ML 80 ML IVCONT ×2 (06:17→17:09)
--- NOTE | 2025-01-09 06:21 | PC.NURSE ---
emptied urinal 400cc of urine out put, refilled pt pitcher of water.
--- NOTE | 2025-01-09 07:10 | PC.NURSE ---
report given to or
[2025-01-09] MEDS: Albuterol Sulfate (0.083%) 2.5 MG/3 ML VIAL.NEB INHALE ×2 (07:40→20:39)
--- NOTE | 2025-01-09 09:02 | PM.HEMONCCN ---
Subjective - Subjective Chief complaint: Shortness of breath and cough Patient: new to practice Consult date: 01/09/25 Primary Care Provider: Wisam Thomas MD Route Sales Associate Utilized?: No - Mongolian Speaking HPI - Consult Narrative Reason for consult: Submassive pulmonary embolism Narrative: Wes Vogel is a 79 year old male past medical history significant for hypertension, chronic kidney disease, legal blindness since age 22 who is presenting with worsening shortness of breath and cough. Patient states that he had sinus like symptoms a few weeks ago and gradually his cough and shortness of breath progressed. He denies any recent travel, trauma to extremities, pain or swelling in either upper or lower extremities. He lives at home with his grandson. He has otherwise been in his usual state of health. His appetite and weight are stable. He has had a colonoscopy in the last 5-[address] angiogram in the ED showed bilateral extensive pulmonary artery emboli, no right heart strain, bilateral multifocal pneumonia, probable aspiration right hemithorax. He has been started on heparin. He says he is feeling a lot better. There is no personal or family history of thromboembolism. He denies any family history of cancer. Patient is not a current smoker. He drinks alcohol rarely. 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 Review of Systems - Constitutional Reports as per HPI, Denies fatigue, Denies malaise, Denies night sweats, Denies weight loss - Cardiovascular Reports no additional cardiovascular complaints - Respiratory Reports no additional respiratory complaints - Gastrointestinal Reports no additional gastrointestinal complaints - Neurologic Reports hearing normal, Denies abnormal gait Oncology Screenings - ECOG Performance Status ECOG Performance Status: 1 [facility] Medical History: Medical History (Last Updated 01/09/25 @ 09:21 by Farzana Lehman MD) Blindness Chronic kidney disease HTN (hypertension) Social History: Social History (Last Updated 01/08/25 @ 18:03 by Mary Clinton NP) Living Situation History: Household Members: Family Alcohol History Details: 1. How often do you have a drink containing alcohol?: a. Never AUDIT-C Alcohol total score: 0 Tobacco History: Patient Tobacco Use Status: Former Tobacco user Smoked in Last 30 Days: No Substance Use History: Use of substances other than those prescribed or required for medical reasons: No Advance Directives: Advance Directives: No Advance Directives Information Provided: Yes Homicidal Assessment: Do you have a plan to hurt others: No Plan Nutrition Assessment: Nutrition Risks: No Nutritional Risk Home Medications and Allergies Current Medications: Current Medications Acetaminophen (Acetaminophen 325 Mg Tablet) 650 mg PO Q6H PRN PRN Reason: Pain, Mild 1-3,fever,headache Albuterol Sulfate (Albuterol Sulfate (0.083%) 2.5 Mg/3 Ml Vial.Neb) 2.5 mg INHALE RQ4H WHILE AWAKE [facility] Last Admin: 01/09/25 07:40 Dose: 2.5 mg Calcium Carbonate (Calcium Carbonate 750 Mg Tab.Chew) 750 mg PO Q4H PRN PRN Reason: Heartburn Heparin Sodium (Porcine) (Heparin Sodium,Porcine 5,000 Unit/Ml Vial) 2,700 unit 40 unit/kg (2700 unit) IVPUSH PROTOCOL BOLUS PRN; Protocol PRN Reason: 40 unit/kg - Heparin Protocol Heparin Sodium (Porcine) (Heparin Sodium,Porcine 5,000 Unit/Ml Vial) 5,500 unit 80 unit/kg (5500 unit) IVPUSH PROTOCOL BOLUS PRN; Protocol PRN Reason: 80 unit/kg - Heparin Protocol Last Admin: 01/09/25 04:33 Dose: 5,500 unit Heparin Sodium/Sodium Chloride (Heparin Sodium,Porcine/1/2ns) 25,000 unit in 250 mls @ 0 mls/hr IVCONT .Q0M [facility]; Protocol Last Titration: 01/09/25 04:37 Dose: 18 units/kg/hr, 12.28 mls/hr Lactated Ringer's (Lr) 1,000 mls @ 80 mls/hr IVCONT .[id number] [facility] Last Admin: 01/09/25 06:17 Dose: 80 mls/hr Piperacillin Sod/Tazobactam (Sod 3.375 gm/ Sodium Chloride) 50 mls @ 100 mls/hr IV Q6H [facility] Last Infusion: 01/09/25 06:45 Dose: Infused Vancomycin HCl 500 mg/ Sodium (Chloride) 110 mls @ 110 mls/hr IV Q12H [facility] Last Admin: 01/09/25 08:28 Dose: 110 mls/hr Magnesium Hydroxide (Milk Of Magnesia 30 Ml Oral.Susp) 30 ml PO DAILY PRN PRN Reason: Constipation Melatonin (Melatonin 3 Mg Tablet) 6 mg PO BEDTIME PRN PRN Reason: Insomnia Ondansetron HCl (Ondansetron Hcl 4 Mg/2 Ml Vial) 4 mg IVPUSH Q8H PRN PRN Reason: Nausea and Vomiting Oxycodone HCl (Oxycodone Hcl Immed Release 5 Mg Tablet) 5 mg PO Q6H PRN PRN Reason: Pain, Severe (Pain Scale 7-10) Pharmacy Consult (Consult Rx Vancomycin Dosing) 1 each MISCELLANE DAILY PRN PRN Reason: Consult order Sodium Chloride (0.9 % Sodium Chloride Flush 3 Ml Syringe) [facility] Last Admin: 01/09/25 08:29 Dose: Not Given Home Medications ?Medication ?Instructions ?Recorded ?Confirmed ?Type amlodipine 5 mg tablet 5 mg PO DAILY 01/08/25 01/08/25 History lisinopril 40 mg tablet 40 mg PO DAILY 01/08/25 01/08/25 History Allergies Allergy/AdvReac Type Severity Reaction Status Date / Time No Known Allergies Allergy Verified 01/08/25 08:51 Physical Exam Vital signs: Vital Signs Temp 98.7 F 01/09/25 06:16 Pulse 92 01/09/25 08:32 Resp 18 01/09/25 08:32 BP 96/59 L 01/09/25 08:32 Pulse Ox 96 01/09/25 08:32 O2 Del Method Nasal Cannula 01/09/25 08:32 O2 Flow Rate 4 01/09/25 08:32 FiO2 28 01/08/25 14:08 Intake & Output 01/08/25 01/09/25 01/09/25 18:59 06:59 18:59 Intake Total 2004.310 / 3749.986 1744.676 / 3749.986 Balance 2004.310 / 3749.986 1744.676 / 3749.986 Intake: Intake, IV Amount 2004.310 / 3749.986 1744.676 / 3749.986 Lactated Ringers 1,000 ml @ 500 2000.000 / 2000.000 mls/hr IV .Q2H [facility] Rx#: [id number] Piperacillin Sodium/Tazobactam 150 / 150 3.375 gm In 0.9 % Sodium Chloride 50 ml @ 100 mls/hr IV Q6H [facility] Rx#:[id number] vancomycin HCL 1,500 mg In 0.9 500 / 500 % Sodium Chloride 500 ml @ 333. 333 mls/hr IV ONCE ONE Rx#: [id number] Heparin Sodium,Porcine/1/2NS 25 130.676 / 130.676 ,000 unit In 250 ml @ Per Protocol IVCONT .Q0M [facility] Rx#: [id number] Lactated Ringers 1,000 ml @ 80 964 / 964 mls/hr IVCONT .[id number] [facility] Rx#: [id number] Norepinephrine Bitartrate/D5W 8 5.310 / 5.310 mg In 250 ml @ Per Protocol IVCONT .Q0M [facility] Rx#:[id number] Other: Weight 68.2 kg Weight 68.2 kg - Constitutional Present: no acute distress, average body habitus - Routine HEENT Exam Head: Present: normal inspection Eye: Present: EOMI. Absent: conjunctivae pale - Routine Neck Exam Present: supple. Absent: lymphadenopathy - Routine Respiratory Exam Present: rhonchi, wheezes - Routine Cardiovascular Exam Cardiovascular: Present: S1, S2 - Routine Abdominal Exam Present: soft - Routine Extremities Exam Present: pulses intact. Absent: calf tenderness - Routine Skin Exam Present: intact - Routine Neurological Exam Present: alert, oriented X3 Hem/Onc Consult Result - Labs CBC & Chem 7: 01/09/25 04:24 01/09/25 04:24 Labs: Short CBC 01/08/25 01/09/25 Range/Units 09:25 04:24 WBC 7.0 8.9 (4.8-10.8) X10*3/uL Hgb 12.6 L 10.2 L (14.0-18.0) g/dl Hct 38.7 L 31.8 L (42.0-52.0) % Plt Count 250 226 (160-400) X10*3/uL BMP 01/08/25 01/08/25 01/09/25 11:03 12:14 04:24 Sodium 137 136 137 Potassium 5.3 H 5.2 H 5.6 H Chloride 102 104 108 Carbon Dioxide 19 L 18 L 20 L BUN 37 H 39 H 43 H Creatinine 1.36 1.50 H 1.45 H Calcium 9.1 8.6 8.1 L Liver Function 01/08/25 01/08/25 Range/Units 11:03 12:14 Total Bilirubin 0.6 0.4 (0.0-1.0) mg/dL AST 27 30 (5-37) U/L ALT 29 27 (0-40) U/L Alkaline Phosphatase 162 H 142 H (39-117) U/L Albumin 3.8 3.5 (3.5-5.0) g/dL Urine 01/08/25 Range/Units 20:30 Urine Color Yellow Urine Appearance Clear Urine pH 5.0 (5.0-9.0) Ur Specific [place] >= 1.030 H (1.005-1.025) Urine Protein Trace (Neg-Trace) mg/dL Urine Glucose (UA) Negative (Negative) mg/dL Assessment and Plan Patient Active problem list reviewed?: Yes (1) Pulmonary embolism Status: Acute Assessment and plan: 1. This is a 79-year-old male with legal blindness and chronic kidney disease presenting with acute extensive bilateral pulmonary embolism. CT angiogram performed 01/08/2025 revealed bilateral extensive pulmonary emboli without right heart strain and bilateral multifocal pneumonia. Echocardiogram shows normal LV size and function. Severe septal asymmetry/hypertrophy. Mild to moderate aortic valve stenosis and significantly elevated right atrial pressure and mild pulmonary hypertension. Patient has been suffering from upper respiratory symptoms for a few weeks which gradually progressed and got worse. He does not have any other inciting risk factors. He is not a smoker in does not give any symptoms or signs of malignancy. Recommend testing for COVID-19 infection. Agree with IV heparin for now since he is mildly hypotensive and quite hypoxic. He has been scheduled for pulmonary embolectomy by Dr. Craven. He will need long-term oral anticoagulation, 1 of the DOACs would be appropriate. I thank you for the consultation. - Time Spent With Patient Time Spent with Patient (in minutes): 25 Additional Coding: - Additional E/M codes Complex E/M visit Add On: CPT G2211
[2025-01-09 11:43] LABS: PTT Heparin Drip 127.0 SEC (53-77.9)
--- NOTE | 2025-01-09 11:48 | PC.NURSE ---
HEPARIN GTT PUT ON HOLD PER PROTOCOL. PATIENT OFF UNIT FOR PROCEDURE.MD BLANK AWARE OF PTT-HD 127.0.
--- NOTE | 2025-01-09 12:00 | P.PNIM_ITS ---
Subjective Subjective Date of Service: 01/09/25 Interval History: sob Physical Exam 2 Exam: Exam: General: AO X 3, no acute distress Resp: CTA bilateral, no accessory muscles used CVS: S1,S2,RRR GI: soft, non tender, non distended Neuro: motor grossly intact, alert Psych: appropriate affect, appropriate insight Vital Signs: Vital Signs: Last Vital Signs Temp 97.9 F 01/09/25 11:33 Pulse 92 01/09/25 11:33 Resp 24 H 01/09/25 11:33 BP 105/71 01/09/25 11:33 Pulse Ox 99 01/09/25 11:33 O2 Del Method Nasal Cannula 01/09/25 11:33 O2 Flow Rate 4 01/09/25 11:33 FiO2 28 01/08/25 14:08 Oxygen Flow Rate 3 01/08/25 08:47 BMI result Body Mass Index 27.5 Objective Data Active Medications Acetaminophen (Acetaminophen 325 Mg Tablet) 650 mg PO Q6H PRN PRN Reason: Pain, Mild 1-3,fever,headache Albuterol Sulfate (Albuterol Sulfate (0.083%) 2.5 Mg/3 Ml Vial.Neb) 2.5 mg INHALE RQ4H WHILE AWAKE [facility] Last Admin: 01/09/25 11:30 Dose: Not Given Documented By: MACRINA Non-Admin Reason: Off Unit: Surgery Calcium Carbonate (Calcium Carbonate 750 Mg Tab.Chew) 750 mg PO Q4H PRN PRN Reason: Heartburn Heparin Sodium (Porcine) (Heparin Sodium,Porcine 5,000 Unit/Ml Vial) 2,700 unit 40 unit/kg (2700 unit) IVPUSH PROTOCOL BOLUS PRN; Protocol PRN Reason: 40 unit/kg - Heparin Protocol Heparin Sodium (Porcine) (Heparin Sodium,Porcine 5,000 Unit/Ml Vial) 5,500 unit 80 unit/kg (5500 unit) IVPUSH PROTOCOL BOLUS PRN; Protocol PRN Reason: 80 unit/kg - Heparin Protocol Last Admin: 01/09/25 04:33 Dose: 5,500 unit Documented By: MADHAVI Heparin Sodium/Sodium Chloride (Heparin Sodium,Porcine/1/2ns) 25,000 unit in 250 mls @ 0 mls/hr IVCONT .Q0M [facility]; Protocol Last Titration: 01/09/25 04:37 Dose: 18 units/kg/hr, 12.28 mls/hr Documented By: MADHAVI Co-signed By: ANITA Lactated Ringer's (Lr) 1,000 mls @ 80 mls/hr IVCONT .[id number] [facility] Last Admin: 01/09/25 06:17 Dose: 80 mls/hr Documented By: MADHAVI Piperacillin Sod/Tazobactam (Sod 3.375 gm/ Sodium Chloride) 50 mls @ 100 mls/hr IV Q6H [facility] Last Infusion: 01/09/25 06:45 Dose: Infused Documented By: MADHAVI Vancomycin HCl 500 mg/ Sodium (Chloride) 110 mls @ 110 mls/hr IV Q12H [facility] Last Infusion: 01/09/25 10:25 Dose: Infused Documented By: ANTONIO Magnesium Hydroxide (Milk Of Magnesia 30 Ml Oral.Susp) 30 ml PO DAILY PRN PRN Reason: Constipation Melatonin (Melatonin 3 Mg Tablet) 6 mg PO BEDTIME PRN PRN Reason: Insomnia Ondansetron HCl (Ondansetron Hcl 4 Mg/2 Ml Vial) 4 mg IVPUSH Q8H PRN PRN Reason: Nausea and Vomiting Oxycodone HCl (Oxycodone Hcl Immed Release 5 Mg Tablet) 5 mg PO Q6H PRN PRN Reason: Pain, Severe (Pain Scale 7-10) Pharmacy Consult (Consult Rx Vancomycin Dosing) 1 each MISCELLANE DAILY PRN PRN Reason: Consult order Sodium Chloride (0.9 % Sodium Chloride Flush 3 Ml Syringe) 3 ml IVFLUSH QSHIFT [facility] Last Admin: 01/09/25 08:29 Dose: Not Given Documented By: FLACA Non-Admin Reason: IV Running Labs 01/09/25 04:24 01/09/25 04:24 Labs: Laboratory Results - last 24 hr 01/08/25 01/08/25 01/08/25 11:03 12:12 12:14 MCV MCH MCHC RDW Plt Count MPV Absolute Nucleated RBC Nucleated RBC % (auto) PT INR aPTT Heparin Protocol Anion Gap 22 H 19 Estim Creat Clear Calc 38.0 34.4 Estimated GFR 51 45 Random Glucose 160 H 156 H Lactic Acid Lactic Acid F/U @ 2Hr 3.1 H* Lactic Acid F/U @ 4Hr Calcium 9.1 8.6 Magnesium 1.8 Total Bilirubin 0.6 0.4 AST 27 30 ALT 29 27 Alkaline Phosphatase 162 H 142 H Total Protein 7.1 6.3 L Albumin 3.8 3.5 Urine Color Urine Appearance Urine pH Ur Specific [place] Urine Protein Urine Glucose (UA) Urine Ketones Urine Blood Urine Nitrite Ur Leukocyte Esterase 01/08/25 01/08/25 01/08/25 14:15 16:51 19:25 MCV MCH MCHC RDW Plt Count MPV Absolute Nucleated RBC Nucleated RBC % (auto) PT 13.6 H INR 1.2 H aPTT Heparin Protocol 24.7 L Anion Gap Estim Creat Clear Calc Estimated GFR Random Glucose Lactic Acid 3.8 H* Lactic Acid F/U @ 2Hr 2.3 H* Lactic Acid F/U @ 4Hr 1.7 Calcium Magnesium Total Bilirubin AST ALT Alkaline Phosphatase Total Protein Albumin Urine Color Urine Appearance Urine pH Ur Specific [place] Urine Protein Urine Glucose (UA) Urine Ketones Urine Blood Urine Nitrite Ur Leukocyte Esterase 01/08/25 01/08/25 01/09/25 20:30 20:58 00:11 MCV MCH MCHC RDW Plt Count MPV Absolute Nucleated RBC Nucleated RBC % (auto) PT INR aPTT Heparin Protocol 62.5 D 24.8 L D Anion Gap Estim Creat Clear Calc Estimated GFR Random Glucose Lactic Acid Lactic Acid F/U @ 2Hr Lactic Acid F/U @ 4Hr Calcium Magnesium Total Bilirubin AST ALT Alkaline Phosphatase Total Protein Albumin Urine Color Yellow Urine Appearance Clear Urine pH 5.0 Ur Specific [place] >= 1.030 H Urine Protein Trace Urine Glucose (UA) Negative Urine Ketones Trace Urine Blood Negative Urine Nitrite Negative Ur Leukocyte Esterase Negative 01/09/25 01/09/25 01/09/25 03:54 04:24 11:01 MCV 89.3 MCH 28.7 MCHC 32.1 RDW 14.0 Plt Count 226 MPV 9.8 Absolute Nucleated RBC 0.000 Nucleated RBC % (auto) 0.0 PT 12.5 H INR 1.1 aPTT Heparin Protocol 35.9 L D 127.0 H* D Anion Gap 15 Estim Creat Clear Calc 35.6 Estimated GFR 47 Random Glucose 107 Lactic Acid Lactic Acid F/U @ 2Hr Lactic Acid F/U @ 4Hr Calcium 8.1 L Magnesium Total Bilirubin AST ALT Alkaline Phosphatase Total Protein Albumin Urine Color Urine Appearance Urine pH Ur Specific [place] Urine Protein Urine Glucose (UA) Urine Ketones Urine Blood Urine Nitrite Ur Leukocyte Esterase Assessment and Plan (1) Pulmonary embolism: Status: Acute Plan 79M PMH hypertension, cKD III, presented sob, found to have pe, possible pna Acute hypoxic respiratory failure secondary to pulmonary embolism Continue IV heparin, plan for thrombectomy today with vascular Check COVID, changed to DOAC after thrombectomy Septic shock due to bilateral pneumonia Continue vancomycin Zosyn, follow up MRSA and DC vanco if negative Wean O2 as tolerated CKD 3 Stable History of hypertension with current hypotension due to pulmonary embolism and pneumonia Hold antihypertensives Acute hyperkalemia Monitor Full code reason for continued hospitalization: Hypoxia Quality Stroke Does the patient have a stroke diagnosis?: No VTE Prior VTE?: No VTE Risk Level:: Medical - moderate - high VTE Device Contraindication: Treatment Not Indicated VTE Drug Contraindication: N/A - Med Ordered
[2025-01-09] MEDS: Heparin Sodium,Porcine 10,000 UNIT/10 ML VIAL 5000 UNIT IVPUSH (12:52)
--- NOTE | 2025-01-09 13:59 | W.PM.OPN ---
Operative Note Operative Note Date of Service: 01/09/25 Narrative: Operative note by [facility] Preoperative diagnosis: DVT with PE Postoperative diagnosis: Same Procedure:1. Ultrasound-guided right common femoral vein access 2. Inferior vena cavogram 3. Selective right pulmonary artery angiogram 4. Selective left pulmonary artery angiogram 5. Mechanical thrombectomy of pulmonary embolism of bilateral pulmonary artery 6. Return of blood using flow Saver system 7. Radiologic supervision and interpretation. Surgeon:Rios Craven M.D. Bedspread Inspector: None Anesthesia: Local with moderate conscious sedation. Total intraservice moderate sedation time was 86 minutes. I monitored the patient's level of consciousness and physiologic status continuously throughout the procedure. Specimens: none Drains :none Estimated blood loss: Less than 50 ml Implant: None Comorbid conditions: Acute respiratory failure with hypoxia, pneumonia, tachycardia, hypotension, Indications: Patient was noted to have submassive pulmonary embolism.. CT of the chest was reviewed and demonstrated acute bilateral pulmonary embolism in the segmental branches. Heparin drip was initiated immediately. Due to the clot burden the patient now presents for pulmonary embolectomy. The patient has signed the informed consent after reviewing risks, complications, benefits, and alternatives previously discussed with the patient. The patient was given the opportunity to ask any additional questions or voice any concerns. All questions were answered to the patient's satisfaction. Procedure in detail: Patient was brought to the angiography suite prior to which a time-out was called for patient identification and site verification. Bilateral groins were prepped and draped in the standard surgical fashion. Under ultrasound guidance right common femoral vein was punctured with micro puncture needle and wire. Subsequently a precision 5 Portuguese sheath was then placed. Bentson wire was advanced to the level of the vena cava. 4 Portuguese Flush catheter was brought up and parked at the level of the renal arteries. Vena cavogram was then undertaken. The patient was systemically anticoagulated with heparin and therapeutic ACT was achieved of []. We then advanced a Frederick wire all the way up into the inferior vena cava to the atrial junction. We then advanced a pigtail catheter through that from the right atrium to the right ventricle into the pulmonary artery. We then readvanced the Frederick wire through this. We met no resistance. At this time we did a selective image the right main pulmonary artery and subsequently the left main pulmonary artery. We then advanced the INTRI 24 Portuguese sheath. Over this we then placed TRIEVER 24 large-bore catheter. This was directed towards the right pulmonary artery. We then successfully aspirated moderate clot burden. Once the syringe was filled we placed this through the flow Saver blood filtering system and returned the blood back to the patient. Several aspirations were performed until we had no thrombus return. Once this was all done completion imaging was then undertaken. No residual thrombus was noted. In a similar fashion we retract to the left side. We removed the inner catheter and we readvanced MPA catheter to the left side. We once again readvanced a Anna wire and was able to track over this. We then exchanged out for an Amplatz wire. We once again placed a clot tree over 24 large bore catheter. Multiple aspirations were undertaken until clot burden was relieved. Once this was done completion imaging was noting no residual thrombus. Catheter wire and sheath were removed. 3-0 nylon pursestring suture was placed. 10 minutes of direct pressure was held. Patient tolerated the procedure well and was returned to recovery with stable vitals. Interpretation of films: 1. Ultrasound was used to evaluate access site of the femoral vein. The femoral vein was noted to be patent with no thrombus. Ultrasound was used for visualization of needle entry. Image was saved to PACS 2. Vena cavogram demonstrated normal caliber vena cava with no evidence of thrombus. 3. Pulmonary artery imaging demonstrated - bilateral main and segmental branch thrombus 4. Completion imaging demonstrated resolution of thrombus Conclusion: 1. Successful bilateral pulmonary embolectomy 2. Anticoagulation status: Continue heparin drip. Can restart formal oral anticoagulation tomorrow This note is constructed using voice recognition software. While every effort has been made to ensure accuracy, estimator paperboard boxes errors may have been included. Thank you for allowing me to participate in the care of your patient. Yours sincerely, Rios Craven MD, FACS, R.P.V.I.
[2025-01-09] MEDS: Heparin Sodium,Porcine/1/2NS 25,000 UNIT/250 ML IV.SOLN 12.28 UNIT IVCONT (14:30)
[2025-01-09 15:47] LABS: INTERNATIONAL NORM RATIO 1.2 (0.9-1.1); Prothrombin Time 13.6 SEC (10.9-12.4)
[2025-01-09 16:10] LABS: PTT Heparin Drip 95.8 SEC (53-77.9)
[2025-01-09] MEDS: Heparin Sodium,Porcine/1/2NS 25,000 UNIT/250 ML IV.SOLN 9.55 UNIT IVCONT (16:21)
[2025-01-09 22:59] LABS: PTT Heparin Drip 40.3 SEC (53-77.9)
[2025-01-10] VITALS (8 sets, daily range): BP systolic 106–144; BP diastolic 61–90; PULSE 74–99; RESP 16–20; TEMP 36.3–36.8; O2SAT 91–100
[2025-01-10 00:06] LABS: Resp Syncy Virus RNA Qual PCR NEGATIVE (Negative); SARS COV2 PCR INHOUSE NEGATIVE (Negative)
[2025-01-10] MEDS: Lactated Ringers 1,000 ML 80 ML IVCONT ×2 (06:00→17:58)
[2025-01-10 06:38] LABS: Hematocrit 29.6 % (42.0-52.0); Hemoglobin 9.5 g/dl (14.0-18.0); Mean Corpuscular HGB Conc 32.1 g/dl (31.0-36.0); Mean Corpuscular Hemoglobin 29.4 pg (27.0-33.0); Mean Corpuscular Volume 91.6 fL (80.0-98.0); NRBC Abs Auto 0.000 X10*3/uL (0.0-0.012); NRBC Pct Auto 0.0 /100WBC (0.0-0.2); Platelet Count 209 X10*3/uL (160-400); Red Blood Count 3.23 X10*6/uL (4.60-5.80); White Blood Count 7.4 X10*3/uL (4.8-10.8)
[2025-01-10 06:45] LABS: PTT Heparin Drip 62.7 SEC (53-77.9)
[2025-01-10 06:56] LABS: Anion Gap 12 (12-20); Blood Urea Nitrogen 35 mg/dL (9-16); Calcium 8.1 mg/dL (8.4-10.2); Carbon Dioxide 23 mmol/L (22-29); Chloride 109 mmol/L (96-108); Creatinine Clr Calc Pharmacy 38.2; Estimated Glomerular Filt Rate 51; Potassium 4.9 mmol/L (3.3-5.1); Sodium 139 mmol/L (135-145)
[2025-01-10] MEDS: Albuterol Sulfate (0.083%) 2.5 MG/3 ML VIAL.NEB INHALE ×4 (07:46→20:23)
[2025-01-10 09:45] LABS: MRSA Nasal PCR NEGATIVE (Negative); SA Nasal PCR POSITIVE (Negative)
--- NOTE | 2025-01-10 10:47 | HO.PM.IMPN ---
Subjective Subjective Date of Service: 01/10/25 Interval History: improved sob Physical Exam Exam: Exam: General: AO X 3, no acute distress Resp: CTA bilateral, no accessory muscles used CVS: S1,S2,RRR GI: soft, non tender, non distended Neuro: motor grossly intact, alert Psych: appropriate affect, appropriate insight Vital Signs: Vital Signs: Last Vital Signs Temp 98.2 F 01/10/25 07:15 Pulse 89 01/10/25 07:52 Resp 18 01/10/25 07:52 BP 127/79 01/10/25 07:15 Pulse Ox 96 01/10/25 07:15 O2 Del Method Nasal Cannula 01/10/25 07:15 O2 Flow Rate 2 01/10/25 07:15 FiO2 28 01/09/25 13:22 Oxygen Flow Rate 3 01/08/25 08:47 BMI result Body Mass Index 27.5 Objective Data Active Medications Acetaminophen (Acetaminophen 325 Mg Tablet) 650 mg PO Q6H PRN PRN Reason: Pain, Mild 1-3,fever,headache Albuterol Sulfate (Albuterol Sulfate (0.083%) 2.5 Mg/3 Ml Vial.Neb) 2.5 mg INHALE RQ4H WHILE AWAKE [facility] Last Admin: 01/10/25 07:46 Dose: 2.5 mg Documented By: DEBBI Apixaban (Apixaban 5 Mg Tablet) 10 mg PO BID [facility] Stop: 01/16/25 21:01 Last Admin: 01/10/25 09:14 Dose: 10 mg Documented By: FOSTEKTaylor Calcium Carbonate (Calcium Carbonate 750 Mg Tab.Chew) 750 mg PO Q4H PRN PRN Reason: Heartburn Ceftriaxone Sodium (Ceftriaxone Sodium 1 Gm Vial) 1 gm IVPUSH Q24H [facility] Doxycycline Monohydrate (Doxycycline Monohydrate 100 Mg Capsule) 100 mg PO Q12H [facility] Lactated Ringer's (Lr) 1,000 mls @ 80 mls/hr IVCONT .[id number] [facility] Last Admin: 01/10/25 06:00 Dose: 80 mls/hr Documented By: DAISY Magnesium Hydroxide (Milk Of Magnesia 30 Ml Oral.Susp) 30 ml PO DAILY PRN PRN Reason: Constipation Melatonin (Melatonin 3 Mg Tablet) 6 mg PO BEDTIME PRN PRN Reason: Insomnia Ondansetron HCl (Ondansetron Hcl 4 Mg/2 Ml Vial) 4 mg IVPUSH Q8H PRN PRN Reason: Nausea and Vomiting Oxycodone HCl (Oxycodone Hcl Immed Release 5 Mg Tablet) 5 mg PO Q6H PRN PRN Reason: Pain, Severe (Pain Scale 7-10) Oxycodone HCl (Oxycodone Hcl Immed Release 5 Mg Tablet) 5 mg PO Q4H PRN PRN Reason: Pain, Moderate(Pain Scale 4-6) Sodium Chloride (0.9 % Sodium Chloride Flush 3 Ml Syringe) 3 ml IVFLUSH QSHIFT [facility] Last Admin: 01/10/25 07:41 Dose: Not Given Documented By: KORTNEY Non-Admin Reason: IV Running Labs 01/10/25 06:32 01/10/25 06:32 Labs: Laboratory Results - last 24 hr 01/09/25 01/09/25 01/09/25 11:01 15:29 18:08 MCV MCH MCHC RDW Plt Count MPV Absolute Nucleated RBC Nucleated RBC % (auto) Hold Purple Top SEE NOTE PT 13.6 H INR 1.2 H aPTT Heparin Protocol 127.0 H* D 95.8 H D Anion Gap Estim Creat Clear Calc Estimated GFR Random Glucose Calcium Nasal Screen MRSA (PCR) Nasal S. aureus Screen Nasal MRSA/S.aureus Interp Random Vancomycin 15.3 Influenza Type A (PCR) Influenza Type B (PCR) RSV RNA Qual (PCR) SARS-CoV-2 RNA (RT-PCR) 01/09/25 01/09/25 01/10/25 22:31 23:16 06:32 MCV 91.6 MCH 29.4 MCHC 32.1 RDW 14.3 Plt Count 209 MPV 9.9 Absolute Nucleated RBC 0.000 Nucleated RBC % (auto) 0.0 Hold Purple Top PT INR aPTT Heparin Protocol 40.3 L D 62.7 D Anion Gap 12 Estim Creat Clear Calc 38.2 Estimated GFR 51 Random Glucose 103 Calcium 8.1 L Nasal Screen MRSA (PCR) NEGATIVE Nasal S. aureus Screen POSITIVE A Nasal MRSA/S.aureus Interp SEE NOTE Random Vancomycin Influenza Type A (PCR) NEGATIVE Influenza Type B (PCR) NEGATIVE RSV RNA Qual (PCR) NEGATIVE SARS-CoV-2 RNA (RT-PCR) NEGATIVE Microbiology Microbiology Results: Microbiology 01/08/25 09:57 Blood Culture - Preliminary Blood - Venous No growth after 24 hours. 01/08/25 09:57 Blood Culture - Preliminary Blood - Venous No growth after 24 hours. Assessment and Plan (1) Pulmonary embolism: Status: Acute Plan 79M PMH hypertension, cKD III, presented sob, found to have pe, possible pna Acute hypoxic respiratory failure secondary to pulmonary embolism Status post thrombectomy on 01/09/2025, transitioned to Eliquis 10 mg b.i.d. decrease to 5 mg b.i.d. on 01/15/2025 Wean O2 Septic shock due to bilateral pneumonia MRSA negative, deescalate to ceftriaxone doxycycline CKD 3 Stable History of hypertension with current hypotension due to pulmonary embolism and pneumonia Hold antihypertensives Acute hyperkalemia Monitor Full code reason for continued hospitalization: Hypoxia Quality Stroke Does the patient have a stroke diagnosis?: No VTE Prior VTE?: No VTE Risk Level:: Medical - moderate - high VTE Device Contraindication: Treatment Not Indicated VTE Drug Contraindication: N/A - Med Ordered
--- NOTE | 2025-01-10 11:09 | MHC.CM.PN ---
IMM 01/10/25 Male DX PNA PE s/p Junior Pulmonary Embolectomy 01/09/25 He is legally blind, lives with grandson + Bro He states that he is independent with ADLS. DME White+ red tipped cane. No services in place. Family assists prn PCP Dr Wisam Thomas New HCP documented Grandson Jesus named. Copies provided and scanned into EMR. DP home with family support + transport.
--- NOTE | 2025-01-10 12:27 | P.PNVS_ITS ---
Subjective Subjective Date of Service: 01/10/25 Patient reports: no new complaints and feels better Interval history: Very pleasant 79-year-old gentleman presents for follow-up status post endovascular intervention for pulmonary embolectomy. He reports that he is breathing significantly better. Now for routine postprocedure follow-up Physical Exam Vital Signs: Vital Signs: Last Vital Signs Temp 97.3 F 01/10/25 11:13 Pulse 95 01/10/25 11:21 Resp 20 01/10/25 11:13 BP 106/61 01/10/25 11:13 Pulse Ox 99 01/10/25 11:13 O2 Del Method Aerosol Mask 01/10/25 11:13 O2 Flow Rate 2 01/10/25 07:15 FiO2 28 01/09/25 13:22 Oxygen Flow Rate 3 01/08/25 08:47 BMI result Body Mass Index 27.5 Const: General: cooperative, healthy appearing and comfortable Nando entation/consciousness: oriented to person, oriented to place and oriented to time HEENT: Head: Yes normal to inspection Neck: Neck: Yes normal visual inspection Carotids: no bruits Chest: Chest palpation & inspection: normal inspection of the chest Resp: Effort & Inspection: normal respiratory effort and able to speak in complete sentences Auscultation: clear to auscultation bilaterally, no crackles, no rales, no rhonchi and no wheezes Cardio: Rate: regular rate Rhythm: regular rhythm Heart sounds: S1 normal heart sound present and S2 normal heart sound present Bruits: no car otid bruits Peripheral pulses: Peripheral pulses 2+ throughout GI: Inspection: Yes normal to inspection Skin: Wounds: no wounds Hair: normal Neuro: General: oriented to person, oriented to place and oriented to time Cranial nerves: Yes CN's II-XII intact bilaterally and Yes Normal hearing present Cognition (Neuro): normal cognition Motor exam (neuro): 5/5 motor strength present throughout Extrem: Other: venous exam: No significant superficial varicosities or spider telangiectasias, minimal edema General: No clubbing, No cyanosis and No edema Psych: Appearance: grossly normal Mental Status: mental status grossly normal Speech and movement: Normal speech and movement present Progress Note: A&P Assessment and plan (1) Pulmonary embolism: Status: Acute Assessment and Plan: In short patient is stable status post pulmonary embolectomy. Would transition to p.o. anticoagulant. Treat for pneumonia. Stable from our perspective. Can follow up with us as an outpatient and proximally 2 weeks' time after discharge. Thank you for allowing us to assist in his care. Time Spent With Patient Time: Total time managing care of this patient today ____ minutes. Procedures Date of Service Date of Service: 01/10/25 Quality Stroke Does the patient have a stroke diagnosis?: No VTE Prior VTE?: No VTE Risk Level:: Medical - moderate - high VTE Device Contraindication: Treatment Not Indicated VTE Drug Contraindication: N/A - Med Ordered
[2025-01-10] MEDS: 0.9 % Sodium Chloride Flush 3 ML SYRINGE IVFLUSH (22:58)
[2025-01-11] VITALS (9 sets, daily range): BP systolic 114–135; BP diastolic 68–82; PULSE 84–99; RESP 16–20; TEMP 36.4–37.3; O2SAT 92–99
[2025-01-11 07:26] LABS: Hematocrit 28.3 % (42.0-52.0); Hemoglobin 8.9 g/dl (14.0-18.0); Mean Corpuscular HGB Conc 31.4 g/dl (31.0-36.0); Mean Corpuscular Hemoglobin 28.9 pg (27.0-33.0); Mean Corpuscular Volume 91.9 fL (80.0-98.0); NRBC Abs Auto 0.000 X10*3/uL (0.0-0.012); NRBC Pct Auto 0.0 /100WBC (0.0-0.2); Platelet Count 248 X10*3/uL (160-400); Red Blood Count 3.08 X10*6/uL (4.60-5.80); White Blood Count 6.4 X10*3/uL (4.8-10.8)
[2025-01-11 07:41] LABS: Anion Gap 10 (12-20); Blood Urea Nitrogen 22 mg/dL (9-16); Calcium 8.3 mg/dL (8.4-10.2); Carbon Dioxide 25 mmol/L (22-29); Chloride 109 mmol/L (96-108); Creatinine Clr Calc Pharmacy 42.7; Estimated Glomerular Filt Rate 58; Potassium 4.5 mmol/L (3.3-5.1); Sodium 139 mmol/L (135-145)
[2025-01-11] MEDS: Albuterol Sulfate (0.083%) 2.5 MG/3 ML VIAL.NEB INHALE ×2 (07:43→11:21)
[2025-01-11] MEDS: 0.9 % Sodium Chloride Flush 3 ML SYRINGE IVFLUSH ×3 (08:15→19:57)
--- NOTE | 2025-01-11 09:54 | PM.DS ---
DS: Providers Provider Date of Service: 01/12/25 Date of admission: 01/08/25 17:54 Date of discharge: 01/12/25 Primary care physician: Wisam Thomas MD Consults: 01/08/25 17:57 Consult to Vascular Surgery Routine Consulting Provider: [facility] Reason for consultation: PE Has provider been notified: Yes 01/08/25 18:06 Consult to Hematology / Oncology Routine Consulting Provider: [facility] [place]/Hematology Reason for consultation: new onset PE DS: Diagnosis Discharge Diagnosis (1) Pulmonary embolism: Status: Acute DS: Summary Hospital Course Hospital Course: from initial hpi: 79-year-old man who presents to the ER with complaints of worsening shortness breath over the last several weeks. Patient reported that while walking he has been getting tired quickly and he has been having to sit in the chair while he sleeps due to the shortness of breath. Reported over the last several months he has been in his usual state of health, no recent illness that left him bed-bound, no trauma or injury, no recent plane ride did have a car ride to [place] about 2 months ago. He went to [facility] yesterday with the same symptoms and was discharged with an albuterol inhaler. Patient is blind on was unable to understand the directions. His shortness breath has worsened over the last week or so. He denied chest pain, nausea, vomiting, diarrhea, fever, chills, recent illness, any history of blood clots. He does not have any other significant medical problems. In the ER, he was noted to have elevated creatinine of 1.50, lactic acid 3.8, troponin 2 or 3.7. Chest CTA showed bilateral extensive pulmonary artery emboli, no right heart strain, bilateral multifocal pneumonia, probable aspiration right hemithorax but denies any prior. Plan is to admit patient for further management and treatment of acute PE and pneumonia. hospital course: Patient was admitted for acute hypoxic respiratory failure secondary to pulmonary embolism and septic shock due to bilateral pneumonia. Underwent thrombectomy on 01/09/2025 and transitioned to Eliquis 10 mg b.i.d. which we will decrease to 5 mg b.i.d. on 01/15/2025. Was weaned to room air and feeling much better. For pneumonia was treated with vancomycin Zosyn, MRSA was negative and deescalated to ceftriaxone doxycycline on discharge we will continue 5 more days of Ceftin and doxycycline. She will follow up with Hematology to determine duration of anticoagulation. For CKD 3 remained stable. For history of hypertension with current hypotension antihypertensives have been held. For acute hyperkalemia - resolved. patient will be discharged to snf, expected to require less than 30 days Time Attestation Discharge Coordination Time (in mins): 33 Quality: Safe Use of Opioids Does Pt have an Active Cancer Diagnosis on the Problem List?: No Quality: Stroke Does the patient have a stroke diagnosis?: No Physical Exam Vital Signs: Vital Signs: Last Vital Signs Temp 97.5 F 01/11/25 07:59 Pulse 92 01/11/25 07:59 Resp 17 01/11/25 07:59 BP 135/82 01/11/25 07:59 Pulse Ox 94 01/11/25 07:59 O2 Del Method Room Air 01/11/25 07:59 O2 Flow Rate 1 01/10/25 15:10 FiO2 28 01/09/25 13:22 Oxygen Flow Rate 3 01/08/25 08:47 BMI result Body Mass Index 27.5 Const: General: cooperative, healthy appearing and comfortable Orientation/consciousness: oriented to person, oriented to place and oriented to time HEENT: Head: Yes normal to inspection Neck: Neck: Yes normal visual inspection Carotids: no bruits Chest: Chest palpation & inspection: normal inspection of the chest Resp: Effort & Inspection: normal respiratory effort and able to speak in complete sentences Auscultation: clear to auscultation bilaterally, no crackles, no rales, no rhonchi and no wheezes Cardio: Rate: regular rate Rhythm: regular rhythm Heart sounds: S1 normal heart sound present and S2 normal heart sound present Bruits: no carotid bruits Peripheral pulses: Peripheral pulses 2+ throughout GI: Inspection: Yes normal to inspection Skin: Wounds: no wounds Hair: normal Neuro: General: oriented to person, oriented to place and oriented to time Cranial nerves: Yes CN's II-XII intact bilaterally and Yes Normal hearing present Cognition (Neuro): normal cognition Motor exam (neuro): 5/5 motor strength present throughout Extrem: Other: venous exam: No significant superficial varicosities or spider telangiectasias, minimal edema General: No clubbing, No cyanosis and No edema Psych: Appearance: grossly normal Mental Status: mental status grossly normal Speech and movement: Normal speech and movement present DS: Data Data Completed and Pending Labs on day of discharge: Laboratory Results - last 24 hr 01/11/25 07:02 WBC 6.4 RBC 3.08 L Hgb 8.9 L Hct 28.3 L MCV 91.9 MCH 28.9 MCHC 31.4 RDW 14.3 Plt Count 248 MPV 9.8 Absolute Nucleated RBC 0.000 Nucleated RBC % (auto) 0.0 Sodium 139 Potassium 4.5 Chloride 109 H Carbon Dioxide 25 Anion Gap 10 L BUN 22 H Creatinine 1.21 Estim Creat Clear Calc 42.7 Estimated GFR 58 Random Glucose 103 Calcium 8.3 L Preliminary micro results at discharge 01/08/25 09:57 Blood Culture - Preliminary Blood - Venous No growth after 48 hours. 01/08/25 09:57 Blood Culture - Preliminary Blood - Venous No growth after 48 hours. Discharge Plan Discharge Anticipated Discharge Date/Time: 01/11/25 09:50 Patient Disposition: Xfer SNF Discharge Diagnosis: pe, pna Referrals: [facility] [Outside] - 1 Week Farzana Lehman MD [Physician, Hematology & Oncology] - 1 Week Wisam Thomas MD [Primary Care Provider, Internal Medicine] - 1 Week Discharge Medications: New doxycycline monohydrate 100 mg Capsule 100 mg PO Q12H Qty: 10 0RF Eliquis 5 mg Tablet 10 mg PO BID Qty: 72 0RF Rx Instructions: 5 more days of 10mg bid, then decrease to 5mg bid cefuroxime axetil 500 mg tablet 500 mg PO BID Qty: 10 0RF Discontinued amlodipine 5 mg tablet 5 mg PO DAILY lisinopril 40 mg tablet 40 mg PO DAILY Discharge Orders: Discharge Order (Routine); Ordered 01/12/25 Ordered By: Warren Guzmán Diet: Advance to usual diet Activity on Discharge: As tolerated Stand Alone Forms: Patient Portal Discharge page Print Language: Kinyarwanda Care Plan Goals: Recovery Health Concerns: Pulmonary embolism and pneumonia Plan of Treatment: Five more days of cefuroxime and doxycycline, 5 more days of high-dose apixaban 10 mg b.i.d. and then decrease to 5 mg b.i.d., follow up with Hematology Assessment: See above
--- NOTE | 2025-01-11 09:56 | HO.PM.IMPN ---
Subjective Subjective Date of Service: 01/11/25 Interval History: improved sob ENT Ears, Nose, Mouth, and Throat: Reports Normal hearing present Neurologic Neurologic: Reports Normal hearing present Physical Exam Vital Signs: Vital Signs: Last Vital Signs Temp 97.5 F 01/11/25 07:59 Pulse 92 01/11/25 07:59 Resp 17 01/11/25 07:59 BP 135/82 01/11/25 07:59 Pulse Ox 94 01/11/25 07:59 O2 Del Method Room Air 01/11/25 07:59 O2 Flow Rate 1 01/10/25 15:10 FiO2 28 01/09/25 13:22 Oxygen Flow Rate 3 01/08/25 08:47 BMI result Body Mass Index 27.5 Const: General: cooperative, healthy appearing and comfortable Orientation/consciousness: oriented to person, oriented to place and oriented to time HEENT: Head: Yes normal to inspection Neck: Neck: Yes normal visual inspection Carotids: no bruits Chest: Chest palpation & inspection: normal inspection of the chest Resp: Effort & Inspection: normal respiratory effort and able to speak in complete sentences Auscultation: clear to auscultation bilaterally, no crackles, no rales, no rhonchi and no wheezes Cardio: Rate: regular rate Rhythm: regular rhythm Heart sounds: S1 normal heart sound present and S2 normal heart sound present Bruits: no carotid bruits Peripheral pulses: Peripheral pulses 2+ throughout GI: Inspection: Yes normal to inspection Skin: Wounds: no wounds Hair: normal Neuro: General: oriented to person, oriented to place and oriented to time Cranial nerves: Yes CN's II-XII intact bilaterally and Yes Normal hearing present Cognition (Neuro): normal cognition Motor exam (neuro): 5/5 motor strength present throughout Extrem: Other: venous exam: No significant superficial varicosities or spider telangiectasias, minimal edema General: No clubbing, No cyanosis and No edema Psych: Appearance: grossly normal Mental Status: mental status grossly normal Speech and movement: Normal speech and movement present Objective Data Active Medications Acetaminophen (Acetaminophen 325 Mg Tablet) 650 mg PO Q6H PRN PRN Reason: Pain, Mild 1-3,fever,headache Albuterol Sulfate (Albuterol Sulfate (0.083%) 2.5 Mg/3 Ml Vial.Neb) 2.5 mg INHALE RQ4H WHILE AWAKE [facility] Last Admin: 01/11/25 07:43 Dose: 2.5 mg Documented By: ELKIN Apixaban (Apixaban 5 Mg Tablet) 10 mg PO BID [facility] Stop: 01/16/25 21:01 Last Admin: 01/11/25 08:15 Dose: 10 mg Documented By: MISSY Calcium Carbonate (Calcium Carbonate 750 Mg Tab.Chew) 750 mg PO Q4H PRN PRN Reason: Heartburn Ceftriaxone Sodium (Ceftriaxone Sodium 1 Gm Vial) 1 gm IVPUSH Q24H [facility] Last Admin: 01/11/25 08:14 Dose: 1 gm Documented By: MISSY Doxycycline Monohydrate (Doxycycline Monohydrate 100 Mg Capsule) 100 mg PO Q12H [facility] Last Admin: 01/10/25 23:07 Dose: 100 mg Documented By: UNIQUE Magnesium Hydroxide (Milk Of Magnesia 30 Ml Oral.Susp) 30 ml PO DAILY PRN PRN Reason: Constipation Melatonin (Melatonin 3 Mg Tablet) 6 mg PO BEDTIME PRN PRN Reason: Insomnia Ondansetron HCl (Ondansetron Hcl 4 Mg/2 Ml Vial) 4 mg IVPUSH Q8H PRN PRN Reason: Nausea and Vomiting Oxycodone HCl (Oxycodone Hcl Immed Release 5 Mg Tablet) 5 mg PO Q6H PRN PRN Reason: Pain, Severe (Pain Scale 7-10) Oxycodone HCl (Oxycodone Hcl Immed Release 5 Mg Tablet) 5 mg PO Q4H PRN PRN Reason: Pain, Moderate(Pain Scale 4-6) Sodium Chloride (0.9 % Sodium Chloride Flush 3 Ml Syringe) 3 ml IVFLUSH QSHIFT [facility] Last Admin: 01/11/25 08:15 Dose: 3 ml Documented By: MISSY Labs 01/11/25 07:02 01/11/25 07:02 Labs: Laboratory Results - last 24 hr 01/11/25 07:02 MCV 91.9 MCH 28.9 MCHC 31.4 RDW 14.3 Plt Count 248 MPV 9.8 Absolute Nucleated RBC 0.000 Nucleated RBC % (auto) 0.0 Anion Gap 10 L Estim Creat Clear Calc 42.7 Estimated GFR 58 Random Glucose 103 Calcium 8.3 L Microbiology Microbiology Results: Microbiology 01/08/25 09:57 Blood Culture - Preliminary Blood - Venous No growth after 48 hours. 01/08/25 09:57 Blood Culture - Preliminary Blood - Venous No growth after 48 hours. Assessment and Plan (1) Pulmonary embolism: Status: Acute Plan 79M PMH hypertension, cKD III, presented sob, found to have pe, possible pna Acute hypoxic respiratory failure secondary to pulmonary embolism Status post thrombectomy on 01/09/2025, transitioned to Eliquis 10 mg b.i.d. decrease to 5 mg b.i.d. on 01/15/2025 Wean O2 Septic shock due to bilateral pneumonia MRSA negative, deescalate to ceftriaxone doxycycline CKD 3 Stable History of hypertension with current hypotension due to pulmonary embolism and pneumonia Hold antihypertensives Acute hyperkalemia Monitor Full code reason for continued hospitalization: Hypoxia on exertion Quality Stroke Does the patient have a stroke diagnosis?: No VTE Prior VTE?: No VTE Risk Level:: Medical - moderate - high VTE Device Contraindication: Treatment Not Indicated VTE Drug Contraindication: N/A - Med Ordered
--- NOTE | 2025-01-11 10:17 | MHC.CM.PN ---
Addendum entered by Ila Almodovar 01/11/25 14:44: A PT eval has been performed today. The recommendation is STR. Patient accepts a bed offer from [facility]. Patient will dc tomorrow via BLS. Original Note: Per MD rounds patient is not medically clear to discharge today. Per MD, patient desatted with ambulation. He will assess for possible discharge tomorrow. DP Home with family support + transport.
[2025-01-12 03:56] VITALS: BP 116/77; PULSE 82; RESP 18; TEMP 36.1; O2SAT 99
[2025-01-12 07:35] VITALS: BP 118/78; PULSE 81; RESP 18; TEMP 36.7; O2SAT 95
[2025-01-12] MEDS: Albuterol Sulfate (0.083%) 2.5 MG/3 ML VIAL.NEB INHALE ×2 (07:46→11:15)
[2025-01-12 07:49] VITALS: PULSE 88; RESP 18; O2SAT 95
[2025-01-12] MEDS: 0.9 % Sodium Chloride Flush 3 ML SYRINGE IVFLUSH (09:09)
[2025-01-12 11:16] VITALS: PULSE 105; RESP 18; O2SAT 96
--- NOTE | 2025-01-12 11:22 | MHC.CM.PN ---
Pt is medically cleared for discharge to [facility], he will be going to [facility] today via [facility]. Pt aware and in agreement with discharge plan.
== END 2025-01-12 12:25 | disposition skilled nursing facility (03) | DRG 853 ==
LOC: HO.ED 17:10 → HO.EDOVER 17:59 → HO.IMC 01-09 07:32
PROVIDERS: Internal Medicine; Surgery Vascular Surgery; Admitting Provider Nurse Practitioner Acute Care; Emergency Provider Emergency Medicine; PCP Internal Medicine; Visit Provider Internal Medicine
PROC: 02CR3ZZ Extirpation of Matter from Left Pulmonary Artery, Percutaneous Approach (ICD-10-PCS; principal; 2025-01-09 10:30)
DX: A41.9 Sepsis, unspecified organism (principal); J69.0 Pneumonitis due to inhalation of food and vomit; J96.01 Acute respiratory failure with hypoxia; R65.21 Severe sepsis with septic shock; N17.9 Acute kidney failure, unspecified; E87.5 Hyperkalemia; I12.9 Hypertensive chronic kidney disease with stage 1 through stage 4 chronic kidney disease, or unspecified chronic kidney disease; H54.8 Legal blindness, as defined in USA; E86.0 Dehydration; N18.30 Chronic kidney disease, stage 3 unspecified; D63.1 Anemia in chronic kidney disease; T48.6X6A Underdosing of antiasthmatics, initial encounter; Z20.822 Contact with and (suspected) exposure to COVID-19
CPT/HCPCS: 36415; 36595; 71045; 71275; 80048; 80053; 80202; 81003; 82140; 82803; 83605; 83735; 83880; 84484; 85025; 85027; 85610; 85730; 87040; 87637; 87640; 87641; 93005; 93306; 94640; 97162; 99152; 99153; 99285; C1725; C1757; C1769; C1887; C1894; J0696; J1644; J2250; J2543; J3010; J3374; J7120; Q9957; Q9967

== ENCOUNTER → 2025-01-08 09:28 | Outpatient (BNV) | payer MEDICARE, MEDICAID, SELFPAY | PROVIDERS: Emergency Provider Emergency Medicine; Visit Provider Radiology Diagnostic Radiology | DX: R06.02 Shortness of breath (principal) | CPT/HCPCS: 71045 ==

== ENCOUNTER → 2025-01-08 13:10 | Outpatient (BNV) | payer MEDICARE, MEDICAID, SELFPAY | PROVIDERS: Emergency Provider Emergency Medicine; PCP Internal Medicine; Visit Provider Surgery Vascular Surgery | DX: I26.09 Other pulmonary embolism with acute cor pulmonale (principal) | CPT/HCPCS: 99222 ==

== ENCOUNTER → 2025-01-08 17:54 | Outpatient (BNV) | payer MEDICARE, MEDICAID, SELFPAY | PROVIDERS: Admitting Provider Nurse Practitioner Acute Care; Emergency Provider Emergency Medicine; PCP Internal Medicine; Visit Provider Internal Medicine | DX: I26.09 Other pulmonary embolism with acute cor pulmonale (principal); J96.01 Acute respiratory failure with hypoxia; J18.9 Pneumonia, unspecified organism | CPT/HCPCS: 99223; 99232; 99233; 99239 ==

== ENCOUNTER → 2025-01-08 17:54 | Outpatient (BNV) | payer MEDICARE, MEDICAID, SELFPAY | PROVIDERS: Admitting Provider Nurse Practitioner Acute Care; Emergency Provider Emergency Medicine; PCP Internal Medicine; Visit Provider Internal Medicine | DX: I26.99 Other pulmonary embolism without acute cor pulmonale (principal); N18.9 Chronic kidney disease, unspecified; J18.9 Pneumonia, unspecified organism | CPT/HCPCS: 99222 ==